=== PATIENT | female | born 1940 | race Caucasian/White ===

== ENCOUNTER 2017-03-18 04:50 | Inpatient (IN) | payer MEDICARE, OTHER ==
[2017-03-18] VITALS (12 sets, daily range): BP systolic 104–128; BP diastolic 58–77; PULSE 40–110; RESP 16–18; TEMP 98.4; Ht 154.9 cm; Wt 68.5 kg
[~2017-03-18] VITALS: Ht 154.9 cm; Wt 68.5 kg
[~2017-03-18 04:50] MED LIST: ALEN70TA30 PO; ALPR0.5T6 PO; ASPI81TA3 PO; BENA20TA48 PO; CHOL2000 PO; FENO48TA4 PO; GABA100C14 PO; LEVO100T87 PO; METO25TA4 PO; RANI150T9 PO; RANO500T2 PO; TRAM50TA2 PO
[2017-03-18] MEDS ORDERED: SOD CHLORIDE 0.9% 500 ML IV STA (04:56)
--- NOTE | 2017-03-18 06:11 | RADRPT ---
PROCEDURE: XR Chest. CLINICAL INDICATION: Chest pain TECHNIQUE: An AP view of the chest was obtained. COMPARISON: Chest x-ray dated 07/03/2016 FINDINGS: There is prominence of the interstitial markings. No pleural effusion or pneumothorax is seen. Th e cardiomediastinal silhouette is mildly enlarged . Calcifications are seen within the aortic arch. The osseous structures demonstrate senescent changes. IMPRESSION: 1. Mild prominence of the interstitial markings, may reflect mild underlying interstitial edema or chronic lung changes. No significant interval change. 2. Mild cardiomegaly and aortic atherosclerosis. RPTAT: HH .Dinorah Carrizales MD, MD Date Time Electronically viewed and signed by .Dinorah Carrizales MD, on 03/18/2017 06:11 .G/
[2017-03-18 06:18] LABS: ADD SCAN DIFF NO
[2017-03-18 06:22] LABS: BASOPHILS % 0.6 % (0.0-2.0); EOSINOPHILS # 0.1 10^3/ul (0.0-0.5); EOSINOPHILS % 2.7 % (0.0-7.0); HEMATOCRIT 36.9 % (37.0-47.0); HEMOGLOBIN 11.8 g/dl (12.0-16.0); LYMPHOCYTES # 1.6 10^3/ul (0.8-2.9); LYMPHOCYTES % 33.1 % (15.0-51.0); MEAN CORPUSCULAR HEMOGLOBIN 29.2 pg (29.0-33.0); MEAN CORPUSCULAR VOLUME 91.3 fl (82.0-101.0); MEAN PLATELET VOLUME 11.3 fl (7.4-10.4); MONOCYTE # 0.4 10^3/ul (0.3-0.9); MONOCYTES % 7.5 % (0.0-11.0); NEUTROPHIL # 2.7 10^3/ul (1.6-7.5); NEUTROPHILS % 55.7 % (39.0-77.0); PLATELET COUNT 241 10^3/UL (140-415); RED BLOOD COUNT 4.04 10^6/ul (4.20-5.40); RED CELL DISTRIBUTION WIDTH 13.3 % (11.5-14.5); WHITE BLOOD COUNT 4.8 10^3/ul (4.8-10.8)
[2017-03-18 06:23] LABS: INR 0.96; PROTIME 12.8 Sec (12.2-14.2)
[2017-03-18 06:25] LABS: PARTIAL THROMBOPLASTIN TIME 27.1 Sec (25.0-35.0)
[2017-03-18 06:26] LABS: CHLORIDE 107 mmol/L (97-110); POTASSIUM 4.5 mmol/L (3.5-5.1); SODIUM 140 mmol/L (135-144)
[2017-03-18 06:29] LABS: ANION GAP 16 (8-16); BLOOD UREA NITROGEN 31 mg/dl (7-20); CALCIUM 9.6 mg/dl (8.4-10.2); CARBON DIOXIDE 22 mmol/L (21-31); GLUCOSE 101 mg/dl (70-220)
--- NOTE | 2017-03-18 06:41 | ERA ---
ER Documentation Chief Complaint Date/Time DATE: 03/18/17 TIME: 06:38 Chief Complaint cp since 0200, has taken 2 ntg sl without relief HPI This is a 76-year-old female who states she had a sudden onset of substernal chest pressure at 2 AM today with radiation into her left neck. She had no shortness of breath no palpitations no dizziness no syncope. Patient has a history of hypertension denies diabetes or high cholesterol. She denies any recent history of chest pain. She says that she called an ambulance and they gave her 2 sprays of nitroglycerin which markedly decreased her pain. She also complains of vague complaints such as generalized weakness and bilateral leg tingling which is resolved. ROS All systems reviewed and are negative except as per history of present illness. Medications Home Meds Active Scripts Ranitidine Hcl* (Zantac*) 150 Mg Tablet, 150 MG PO BID, #60 TAB Prov:DAVID PUGH DO 07/01/16 Reported Medications Tramadol HCl (Tramadol HCl) 50 Mg Tablet, 0 PO BID, #60 TAB PATIENTS RELATIVE ISNT SURE ON THE DOSE MG OF TRAMADOL 07/03/16 Alendronate Sodium* (Fosamax*) 70 Mg Tablet, 70 MG PO Q7D, #4 TAB 07/03/16 Levothyroxine Sodium* (Levothyroxine Sodium*) 100 Mcg Tablet, 100 MCG PO BEFORE BREAKFAST, #30 TAB 07/03/16 Ranolazine* (Ranexa*) 500 Mg Tab.sr.12h, 500 MG PO Q12, TAB 02/19/16 Gabapentin* (Gabapentin*) 100 Mg Capsule, 100 MG PO DAILY, #90 CAP 01/11/16 Cholecalciferol* (Vitamin D3*) 2,000 Unit Cap, 2000 UNIT PO DAILY, CAP 01/11/16 Fenofibrate Nanocrystallized* (Fenofibrate*) 48 Mg Tablet, 48 MG PO DAILY 01/11/16 Aspirin* (Aspirin* Chew) 81 Mg Tab.chew, 81 MG PO DAILY, TAB.CHEW 07/03/15 Metoprolol Tartrate* (Lopressor*) 25 Mg Tablet, 25 MG PO DAILY, TAB 07/03/15 Benazepril Hcl* (Benazepril Hcl*) 20 Mg Tablet, 10 MG PO AM, TAB 07/03/15 Alprazolam* (Alprazolam*) 0.5 Mg Tablet, 0.5 MG PO DAILY Y for ANXIETY, TAB 07/03/15 Allergies Allergies: Coded Allergies: No Known Allergy (Unverified , 07/03/16) PMhx/Soc History of Surgery: Yes ([facility] 2013) Anesthesia Reaction: No Hx Neurological Disorder: No Hx Respiratory Disorders: No Hx Cardiac Disorders: Yes (HTN, HIGH CHOLESTEROL, MA, A-FIB) Hx Psychiatric Problems: Yes (ANXIETY, DEPRESSION) Hx Miscellaneous Medical Probl: Yes (PARKINSONS, right leg DVT) Hx Alcohol Use: No Hx Substance Use: No Hx Tobacco Use: No Smoking Status: Never smoker FmHx Family History: No coronary disease Physical Exam Vitals Vital Signs Date Time Temp Pulse Resp B/P Pulse Ox O2 Delivery O2 Flow Rate FiO2 03/18/17 06:39 52 16 137/76 100 Room Air 03/18/17 04:52 98.4 48 20 184/78 94 Physical Exam Const: Well-developed, well-nourished Head: Atraumatic, normocephalic Eyes: Normal Conjunctiva, PERRLA, EOMI, normal sclera, no nystagmus ENT: Normal External Ears, Nose and Mouth, moist mucus membranes. Neck: Full range of motion. No meningismus, no lymphadenopathy. Resp: Clear to auscultation bilaterally, no wheezing, rhonchi, rales Cardio: Regular rate and rhythm, no murmurs, S1 S2 present Abd: Soft, non tender x 4, non distended. Normal bowel sounds, no guarding or rebound, no pulsitile abdominal masses or bruits Skin: No petechiae or rashes, no ecchymosis , no maculopapular rash Back: No midline or flank tenderness Ext: No cyanosis, or edema, FROM x 4, normal inspection, neurovascularly intact x 4 Neur: Awake and alert, STR 5/5 x 4, sensation intact x 4, no focal findings, cerebellum intact Psych: Normal Mood and Affect Result Diagram: 03/18/17 0508 03/18/17 0508 Results 24 hrs Laboratory Tests Test 03/18/17 05:08 White Blood Count 4.810^3/ul Red Blood Count 4.0410^6/ul Hemoglobin 11.8g/dl Hematocrit 36.9% Mean Corpuscular Volume 91.3fl Mean Corpuscular Hemoglobin 29.2pg Mean Corpuscular Hemoglobin Concent 32.0g/dl Red Cell Distribution Width 13.3% Platelet Count 94068^3/UL Mean Platelet Volume 11.3fl Neutrophils % 55.7% Lymphocytes % 33.1% Monocytes % 7.5% Eosinophils % 2.7% Basophils % 0.6% Nucleated Red Blood Cells % 0.0/100WBC Neutrophils # 2.710^3/ul Lymphocytes # 1.610^3/ul Monocytes # 0.410^3/ul Eosinophils # 0.110^3/ul Basophils # 0.010^3/ul Nucleated Red Blood Cells # 0.010^3/ul Prothrombin Time 12.8Sec Prothrombin Time Ratio 1.0 INR International Normalized Ratio 0.96 Activated Partial Thromboplast Time 27.1Sec Sodium Level 140mmol/L Potassium Level 4.5mmol/L Chloride Level 107mmol/L Carbon Dioxide Level 22mmol/L Anion Gap 16 Blood Urea Nitrogen 31mg/dl Creatinine 1.60mg/dl Glucose Level 101mg/dl Calcium Level 9.6mg/dl Troponin I < 0.012ng/ml Current Medications Medications (Trade) Dose Ordered Sig/Roger Route PRN Reason Start Time Stop Time Status Last Admin Dose Admin Sodium Chloride (NS) 500 ml @ 500 mls/hr Q1H STAT IV 03/18/17 04:56 03/18/17 06:01 DC 03/18/17 04:56 Procedures/MDM EKG: Rate/Rhythm: Atrial fibrillation with a heart rate of 50 QRS, ST, QT: NORMAL, QRS, QT] Impression: Atrial fibrillation PROCEDURE: XR Chest. CLINICAL INDICATION: Chest pain TECHNIQUE: An AP view of the chest was obtained. COMPARISON: Chest x-ray dated 07/03/2016 FINDINGS: There is prominence of the interstitial markings. No pleural effusion or pneumothorax is seen. The cardiomediastinal silhouette is mildly enlarged . Calcifications are seen within the aortic arch. The osseous structures demonstrate senescent changes. IMPRESSION: 1. Mild prominence of the interstitial markings, may reflect mild underlying interstitial edema or chronic lung changes. No significant interval change. 2. Mild cardiomegaly and aortic atherosclerosis. RPTAT: .Dinorah Carrizales MD, Date Time Electronically viewed and signed by .Dinorah Carrizales MD, on 03/18/2017 06 :11 .G/ CC: MIKEY HARDEN Patient's symptoms are concerning for cardiac cause will require inpatient workup and continuous monitoring. Further w/u for ischemia, arrhythmia, PE or dissection will be deferred to the inpatient team. Accepting Care Team: Current data and ongoing care discussed. Time: Time of admission Primary Provider: chris Consulting: [employer] Outstanding Data: none Departure Diagnosis: Primary Impression: Chest pain Qualified Code: R07.9 - Chest pain, unspecified type Condition: TRAVIS Alfaro DO March 18, 2017 06:41
[2017-03-18 06:57] LABS: TROPONIN-I < 0.012 ng/ml (0.00-0.12)
[2017-03-18] MEDS ORDERED: SOD CHLORIDE 0.9% 1,000 ML IV SCH (08:17)
[2017-03-18] MEDS ORDERED: LEVO75TA5 PO (08:20)
[2017-03-18] MEDS ORDERED: GABA300C16 PO (08:20)
[2017-03-18] MEDS ORDERED: TRAM-40 PO (08:24)
[2017-03-18] MEDS ORDERED: APIX5TAB PO (08:26)
[2017-03-18] MEDS ORDERED: NITR0.4T6 SL (08:27)
[2017-03-18] MEDS ORDERED: ACETAMINOPHEN 325 MG TAB PO PRN (08:30)
[2017-03-18] MEDS ORDERED: ONDANSETRON 4 MG INJ IV PRN (08:30)
[2017-03-18 12:30] LABS: CREATINE KINASE 32 IU/L (23-200)
[2017-03-18 12:32] LABS: CK-MB 0.27 ng/ml (0.0-2.4)
[2017-03-18 12:36] LABS: TROPONIN-I < 0.012 ng/ml (0.00-0.12)
[2017-03-18] MEDS ORDERED: ALPRAZOLAM 0.5 MG TAB PO PRN (14:00)
[2017-03-18] MEDS ORDERED: NITROGLYCERIN (SL) 0.4 MG TAB SL PRN (14:00)
--- NOTE | 2017-03-18 14:13 | HP ---
Date/Time of Note Date/Time of Note DATE: 03/18/17 TIME: 14:06 Assessment/Plan VTE Prophylaxis VTE Prophylaxis Intervention: other (Eliquis) Lines/Catheters IV [facility] Saline Lock Urinary Cath still in place: No Assessment/Plan Assessment/Plan 76yo F with 1. Chest pain r/o ACS, r/o GI pathology 2. Chronic Angina with non obstructive CAD on [facility] 09/14/15 3. HTN 4. Dyslipidemia 5. Paroxysmal Afib : 6. Chronic lung nodules on CT 7. Hypothyroidism 8. Osteoporosis on fosamax 9. CKD w/out PAYAM PLAN: * Telemetry admission, trend cardiac enzymes, 2d echo if none recently and cardiology consult. * oxygen and nitroglycerin therapy as needed. * Daily aspirin if no allergy or bleeding risk. * Will also get GI consult as patient is on Fosamax and may have GI side effects * Serial labs * Needs repeat CT for lung nodules in 3-6 months btw May and July * Titrate meds as indicated for better BP control * Supportive care PROPHYLAXIS: PPI and Eliquis HPI/ROS Admit Date/Time Admit Date/Time March 18, 2017 at 08:18 Hx of Present Illness PRESENTING COMPLAINT: acute onset of L sided chest pain 2am HISTORY OF PRESENTING COMPLAINT: This is a pleasant 76-year-old female who was a weekend from sleep last night because of chest pain. Said to be midsternal and radiates into her upper back. Pain was not associated with diaphoresis but patient did feel like she could not catch her breath. Patient has had no fever or cough. Patient does have history of gastroesophageal reflux intermittently. Patient does take Fosamax for osteoporosis. Pain was not relieved by sublingual nitroglycerin even though the patient took 2 pills, but was eventually relieved when she got nitroglycerin sprays in the ambulance in route to the emergency room. She is currently pain-free. She is being admitted to rule out an acute coronary syndrome. Initial ER evaluation has been unremarkable, my suspicion is patient might have a gastroenterologic cause of her pain in view of her medication history. ROS ROS: CONSTITUTIONAL: denies fever, chills, weight loss, weight gain HEENT: denies headaches, any vertigo, any sore throat or rhinorrhea. Eyes: No double or blurred vision or eye pain. GASTROINTESTINAL: The patient denies any nausea, vomiting, diarrhea or abdominal pain. GENITOURINARY: denies dysuria, frequency, urgency or hematuria. MUSCULOSKELETAL: also denies myalgias, arthralgias or edema. SKIN: denies rash or jaundice NEUROLOGIC: denies weakness, dizziness, focal neurological change or headache. PSYCHIATRIC: denies history of depression in the past, any suicidal ideation. substance abuse. ENDOCRINE: denies polyuria, polydipsia or hot or cold intolerance. HEMATOLOGIC: denies history of easy bruising, anemia or eczema. PMH/Family/Social Past Medical History * HTN * Paroxysmal afib * osteoporosis * HLD * CKD * Hypothyroidism * anxiety * Non obstructive CAD Past Surgical History * [facility] 2014 Family History Significant Family History: no pertinent family hx Social History Alcohol Use: none Smoking Status: Never smoker Drug Use: none Exam/Review of Systems Vital Signs Vitals VS - Last 72 Hours, by Label Date Time Temp Pulse Resp B/P Pulse Ox O2 Delivery O2 Flow Rate FiO2 03/18/17 13:34 60 03/18/17 12:30 97.6 54 16 104/58 100 03/18/17 12:06 53 03/18/17 09:34 51 03/18/17 08:30 98.4 52 16 121/66 100 Room Air 03/18/17 07:30 Nasal Cannula 2 03/18/17 06:39 52 16 137/76 100 Room Air 03/18/17 04:52 98.4 48 20 184/78 94 Vital Signs Date Time Temp Pulse Resp B/P Pulse Ox O2 Delivery O2 Flow Rate FiO2 03/18/17 13:34 60 03/18/17 12:30 97.6 16 104/58 100 03/18/17 08:30 Room Air 03/18/17 07:30 2 Exam Constitutional: alert, oriented, No distress Psych: anxiety Head: atraumatic, normocephalic Eyes: PERRL, No icteric ENMT: mucosa pink and moist, nl external ears & nose Neck: non-tender, supple, No jvd Respiratory: clear to auscultation, normal air movement Cardiovascular: irregular rhythm, nl pulses, No jugular venous distention (JVD), No murmurs/extra sounds, No regular rate and rhythm Gastrointestinal: bowel sounds, non-tender, soft Musculoskeletal: nl extremities to inspection Extremities: No edema Neurological: nl mental status, nl speech, No lethargic Labs Result Diagram: 03/18/17 0508 03/18/17 0508 Medications Medications Current Medications Sodium Chloride (NS) 1,000 ml @ 80 mls/hr [id number] IV ; Start 03/18/17 at 08:17 ; Stop 03/18/17 at 20:46 Alprazolam (Xanax) 0.5 mg DAILY PRN PO ANXIETY; Start 03/18/17 at 14:00; Status UNV Apixaban (Eliquis) 5 mg BID PO ; Start 03/18/17 at 21:00; Status UNV Benazepril HCl (Lotensin) 20 mg AM PO ; Start 03/19/17 at 09:00; Status UNV Cholecalciferol (Vitamin D) 2,000 unit DAILY PO ; Start 03/19/17 at 09:00; Status UNV Fenofibrate (Tricor) 48 mg DAILY PO ; Start 03/19/17 at 09:00; Status UNV Gabapentin (Neurontin) 300 mg QHS PO ; Start 03/18/17 at 21:00; Status UNV Metoprolol Tartrate (Lopressor) 25 mg DAILY PO ; Start 03/19/17 at 09:00; Status UNV Nitroglycerin (Nitroglycerin (Sl Tab) 0.4 Mg) 1 tab [id number] PRN SL CHEST PAIN ; Start 03/18/17 at 14:00; Status UNV Ranitidine HCl (Zantac) 150 mg BID PO ; Start 03/18/17 at 21:00; Status UNV Ranolazine (Ranexa) 500 mg Q12 PO ; Start 03/18/17 at 21:00; Status UNV Tramadol HCl (Ultram) 50 mg BID PRN PO PAIN; Start 03/18/17 at 14:00; Status UNV Procedures Procedures Laboratory Tests Test 03/18/17 05:08 03/18/17 11:22 White Blood Count 4.810^3/ul Red Blood Count 4.0410^6/ul Hemoglobin 11.8g/dl Hematocrit 36.9% Mean Corpuscular Volume 91.3fl Mean Corpuscular Hemoglobin 29.2pg Mean Corpuscular Hemoglobin Concent 32.0g/dl Red Cell Distribution Width 13.3% Platelet Count 01894^3/UL Mean Platelet Volume 11.3fl Neutrophils % 55.7% Lymphocytes % 33.1% Monocytes % 7.5% Eosinophils % 2.7% Basophils % 0.6% Nucleated Red Blood Cells % 0.0/100WBC Neutrophils # 2.710^3/ul Lymphocytes # 1.610^3/ul Monocytes # 0.410^3/ul Eosinophils # 0.110^3/ul Basophils # 0.010^3/ul Nucleated Red Blood Cells # 0.010^3/ul Prothrombin Time 12.8Sec Prothrombin Time Ratio 1.0 INR International Normalized Ratio 0.96 Activated Partial Thromboplast Time 27.1Sec Sodium Level 140mmol/L Potassium Level 4.5mmol/L Chloride Level 107mmol/L Carbon Dioxide Level 22mmol/L Anion Gap 16 Blood Urea Nitrogen 31mg/dl Creatinine 1.60mg/dl Glucose Level 101mg/dl Calcium Level 9.6mg/dl Troponin I < 0.012ng/ml < 0.012ng/ml Creatine Kinase 32IU/L Creatine Kinase Index 0.8 Creatinine Kinase MB (Mass) 0.27ng/ml PROCEDURE: XR Chest. CLINICAL INDICATION: Chest pain TECHNIQUE: An AP view of the chest was obtained. COMPARISON: Chest x-ray dated 07/03/2016 FINDINGS: There is prominence of the interstitial markings. No pleural effusion or pneumothorax is seen. The cardiomediastinal silhouette is mildly enlarged . Calcifications are seen within the aortic arch. The osseous structures demonstrate senescent changes. IMPRESSION: 1. Mild prominence of the interstitial markings, may reflect mild underlying interstitial edema or chronic lung changes. No significant interval change. 2. Mild cardiomegaly and aortic atherosclerosis. RPTAT: .Dinorah Carrizales MD, MD Date Time Electronically viewed and signed by .Dinorah Carrizales MD, MD on 03/18/2017 06 :11 .G/ CC: MIKEY HARDEN I reviewed EKG Rate: 50s Rhythm: Afib, on monitor, sinus with multiple PACs Note: No ST elevation or depressions noted concerning for acute ischemic event. JONN ALEXANDER March 18, 2017 14:13
[2017-03-18] MEDS ORDERED: ALPRAZOLAM 0.25 MG TAB PO PRN (14:30)
[2017-03-18] MEDS: traMADol 50 MG TAB PO PRN (15:34)
--- NOTE | 2017-03-18 16:28 | CONS ---
Date/Time of Note Date/Time of Note DATE: 03/18/17 TIME: 16:11 Assessment/Plan Assessment/Plan Additional Assessment/Plan Assessment * Chest pain Cardiac vs non cardiac pathology * Hypertension * Osteoporosis * Hypertension * History of atrial fibrillation Plan * trend troponin * EGD risk and benefit explained to patient and daughter and agreed with the planned procedure * control chest pain Consultation Date/Type/Reason Admit Date/Time March 18, 2017 at 08:18 Date of Consultation: March 18, 2017 Type of Consultation: Gastroenterology Reason for Consultation chest pain r/o gi pathology Referring Provider: JONN ALEXANDER Hx of Present Illness 77 y/o female with past medical history of hypothyroidism,atrial fibrillation, hypertension,CAD,osteoporosis,anxiety was brought to emergency room with sudden nset of chest pain radiating to the back.Pain is described as crushing 04/12 with associated nausea,Nitroglyceri x2 was taken which afforded no relief hence patient was brought to emergency room. Emergency room course revealed chest x ray mild cardiomegaly,WBC 4.8 , Hemoglobin 11.8,Troponin <0.012.ECG revealed atrial fibrillation with slow ventricular response.Patient was given,nitroglycerin ,Xanax and tramadol which afforded relief. On examination ,patient claims chest pain has improved,denies any nausea, vomiting but claims she had on and off episode of chest pain,with associated bloating and occasional dysphagia.Patient also taking Fosamax for her osteoporosis Constitutional: improved Eyes: no complaints ENT: no complaints Respiratory: no complaints Cardiovascular: chest pain, No edema, No lightheadedness, No orthopenea, No palpitations, No paroxysmal nocturnal dyspnea Gastrointestinal: pain Genitourinary: no complaints Musculoskeletal: no complaints Skin: no complaints Neurologic: no complaints Endocrine: no complaints Lymphatic: no complaints Psychological: anxiety Immunologic: no complaints Past Medical History Medical History: angina, coronary artery disease, hypertension, hypothyroid, other (osteoporosis) Past Surgical History Past Surgical Hx: no surgical history Family History Significant Family History: no pertinent family hx Social History Alcohol Use: none Smoking Status: Never smoker Drug Use: none Exam/Review of Systems Vital Signs Vitals Vital Signs Date Time Temp Pulse Resp B/P Pulse Ox O2 Delivery O2 Flow Rate FiO2 03/18/17 15:51 98.2 113 16 119/62 97 03/18/17 08:30 Room Air 03/18/17 07:30 2 Exam Constitutional: alert, oriented, well developed Psych: nl mood/affect Head: atraumatic, normocephalic Eyes: PERRL, nl conjunctiva, nl sclera Neck: non-tender Respiratory: clear to auscultation, normal air movement Cardiovascular: nl pulses, regular rate and rhythm Gastrointestinal: bowel sounds, non-tender, soft, No rebound or guarding Musculoskeletal: nl extremities to inspection, nl gait and stance Extremities: normal pulses Neurological: nl speech, nl strength Skin: nl turgor, No rash or lesions Lymph: nl lymph nodes Results Result Diagram: 03/18/17 0508 03/18/17 0508 Results 24 hrs Laboratory Tests Test 03/18/17 05:08 03/18/17 11:22 White Blood Count 4.8 Red Blood Count 4.04 L Hemoglobin 11.8 L Hematocrit 36.9 L Mean Corpuscular Volume 91.3 Mean Corpuscular Hemoglobin 29.2 Mean Corpuscular Hemoglobin Concent 32.0 Red Cell Distribution Width 13.3 Platelet Count 241 Mean Platelet Volume 11.3 H Neutrophils % 55.7 Lymphocytes % 33.1 Monocytes % 7.5 Eosinophils % 2.7 Basophils % 0.6 Nucleated Red Blood Cells % 0.0 Neutrophils # 2.7 Lymphocytes # 1.6 Monocytes # 0.4 Eosinophils # 0.1 Basophils # 0.0 Nucleated Red Blood Cells # 0.0 Prothrombin Time 12.8 Prothrombin Time Ratio 1.0 INR International Normalized Ratio 0.96 Activated Partial Thromboplast Time 27.1 Sodium Level 140 Potassium Level 4.5 Chloride Level 107 Carbon Dioxide Level 22 Anion Gap 16 Blood Urea Nitrogen 31 H Creatinine 1.60 H Glucose Level 101 Calcium Level 9.6 Troponin I < 0.012 < 0.012 Creatine Kinase 32 Creatine Kinase Index 0.8 Creatinine Kinase MB (Mass) 0.27 Medications Medications Current Medications Apixaban (Eliquis) 5 mg BID PO ; Start 03/18/17 at 21:00 Benazepril HCl (Lotensin) 20 mg AM PO ; Start 03/19/17 at 09:00 Cholecalciferol (Vitamin D) 2,000 unit DAILY PO ; Start 03/19/17 at 09:00 Fenofibrate (Tricor) 48 mg DAILY PO ; Start 03/19/17 at 09:00 Gabapentin (Neurontin) 300 mg QHS PO ; Start 03/18/17 at 21:00 Metoprolol Tartrate (Lopressor) 25 mg DAILY PO ; Start 03/19/17 at 09:00 Nitroglycerin (Nitroglycerin (Sl Tab) 0.4 Mg) 1 tab [id number] PRN SL CHEST PAIN ; Start 03/18/17 at 14:00 Ranitidine HCl (Zantac) 150 mg BID PO ; Start 03/18/17 at 21:00 Ranolazine (Ranexa) 500 mg Q12 PO ; Start 03/18/17 at 21:00 Tramadol HCl (Ultram) 50 mg BID PRN PO PAIN Last administered on 03/18/17 15: 34; Admin Dose 50 MG; Start 03/18/17 at 14:00 Alprazolam (Xanax) 0.5 mg DAILY PRN PO ANXIETY Last administered on 03/18/17 14:55; Admin Dose 0.5 MG; Start 03/18/17 at 14:30 ARCHIE PONCE MD March 18, 2017 16:23
[2017-03-18 17:33] LABS: CREATINE KINASE 36 IU/L (23-200)
[2017-03-18 17:44] LABS: CK-MB 0.27 ng/ml (0.0-2.4)
[2017-03-18 18:00] LABS: TROPONIN-I < 0.012 ng/ml (0.00-0.12)
[2017-03-18] MEDS: RANOLAZINE (SR) 500 MG TAB PO SCH (20:49)
[2017-03-18] MEDS: APIXABAN 5 MG TABLET PO SCH (20:49)
[2017-03-18] MEDS: GABAPENTIN 300 MG CAP PO SCH (20:49)
[2017-03-18] MEDS: RANITIDINE 150 MG TAB PO SCH (20:49)
[2017-03-19] VITALS (25 sets, daily range): BP systolic 107–149; BP diastolic 45–73; PULSE 50–88; RESP 14–20
[2017-03-19 00:16] LABS: URINE BILIRUBIN (Dip) NEGATIVE (NEGATIVE); URINE BLOOD (Dip) NEGATIVE (NEGATIVE); URINE COLOR LT. YELLOW (YELLOW); URINE GLUCOSE (Dip) NEGATIVE (NEGATIVE); URINE KETONES (Dip) NEGATIVE (NEGATIVE); URINE NITRITE (Dip) NEGATIVE (NEGATIVE); URINE TOTAL PROTEIN (Dip) NEGATIVE (NEGATIVE); URINE UROBILINOGEN (Dip) 0.2 E.U./dL (0.1-1.0)
[2017-03-19 00:17] LABS: ADD UMIC YES; URINE LEUKOCYTE ESTERASE (Dip) TRACE (NEGATIVE)
[2017-03-19 00:20] LABS: BACTERIA,URINE FEW; SQUAMOUS EPITHELIAL CELL,UR FEW; URINE RBCS 0-2 /HPF (0)
[2017-03-19 07:28] LABS: ADD SCAN DIFF NO
[2017-03-19 07:38] LABS: BASOPHILS % 0.6 % (0.0-2.0); EOSINOPHILS # 0.1 10^3/ul (0.0-0.5); EOSINOPHILS % 2.7 % (0.0-7.0); HEMATOCRIT 34.2 % (37.0-47.0); LYMPHOCYTES # 1.6 10^3/ul (0.8-2.9); MEAN CORPUSCULAR HEMOGLOBIN 28.9 pg (29.0-33.0); MEAN CORPUSCULAR HGB CONC 32.2 g/dl (32.0-37.0); MEAN PLATELET VOLUME 10.7 fl (7.4-10.4); MONOCYTE # 0.4 10^3/ul (0.3-0.9); MONOCYTES % 7.6 % (0.0-11.0); NEUTROPHIL # 2.6 10^3/ul (1.6-7.5); NEUTROPHILS % 54.7 % (39.0-77.0); PLATELET COUNT 218 10^3/UL (140-415); RED CELL DISTRIBUTION WIDTH 13.3 % (11.5-14.5); WHITE BLOOD COUNT 4.7 10^3/ul (4.8-10.8)
[2017-03-19] MEDS: LEVOTHYROXINE 75 MCG TAB PO SCH (07:52)
[2017-03-19] MEDS: FENOFIBRATE 48 MG TAB PO SCH (08:04)
[2017-03-19] MEDS: RANOLAZINE (SR) 500 MG TAB PO SCH ×2 (08:04→20:57)
[2017-03-19] MEDS: CHOLECALCIFEROL 2,000 UNIT CAP PO SCH (08:04)
[2017-03-19] MEDS: APIXABAN 5 MG TABLET PO SCH ×2 (08:04→20:56)
[2017-03-19] MEDS: RANITIDINE 150 MG TAB PO SCH (08:04)
[2017-03-19 08:08] LABS: CALCIUM 9.2 mg/dl (8.4-10.2); CREATININE 1.4 mg/dl (0.44-1.00); MAGNESIUM 1.8 mg/dl (1.7-2.5); POTASSIUM 4.6 mmol/L (3.5-5.1)
[2017-03-19] MEDS: METOPROLOL 25 MG TAB PO SCH (08:08)
[2017-03-19] MEDS: BENAZEPRIL 20 MG TAB PO SCH (08:08)
[2017-03-19 08:23] LABS: THYROID STIMULATING HORMONE 3.33 MIU/L (0.465-4.680)
--- NOTE | 2017-03-19 14:35 | PN ---
Date/Time of Note Date/Time of Note DATE: 03/19/17 TIME: 14:32 Assessment/Plan VTE Prophylaxis VTE Prophylaxis Intervention: other (Eliquis) Lines/Catheters IV [facility] Saline Lock Urinary Cath still in place: No Assessment/Plan Assessment/Plan 76yo F with 1. Chest pain ACS has been ruled out , r/o GI pathology 2. Chronic Angina with non obstructive CAD on [facility] 09/14/15 3. HTN 4. Dyslipidemia 5. Paroxysmal Afib : 6. Chronic lung nodules on CT 7. Hypothyroidism 8. Osteoporosis on fosamax 9. CKD w/out PAYAM PLAN: * Follow-up EGD findings, if negative plan for discharge. PROPHYLAXIS: PPI and Eliquis Subjective 24 Hr Interval Summary Free Text/Dictation Patient doing well, denies any further chest pain. States she continues to have some upper back pain however. Planned for endoscopy today. Exam/Review of Systems Vital Signs Vitals Vital Signs Date Time Temp Pulse Resp B/P Pulse Ox O2 Delivery O2 Flow Rate FiO2 03/19/17 12:00 54 03/19/17 11:29 98.1 20 113/73 97 03/19/17 05:31 Room Air 03/18/17 07:30 2 Intake and Output 03/18/17 03/18/17 03/19/17 14:59 22:59 06:59 Intake Total 450 ml 120 ml Output Total 400 ml Balance 450 ml -280 ml Exam Constitutional: alert, oriented, No distress Psych: anxiety Head: atraumatic, normocephalic Eyes: PERRL, No icteric ENMT: mucosa pink and moist, nl external ears & nose Neck: non-tender, supple, No jvd Respiratory: clear to auscultation, normal air movement Cardiovascular: irregular rhythm, nl pulses, No jugular venous distention (JVD), No murmurs/extra sounds, No regular rate and rhythm Gastrointestinal: bowel sounds, non-tender, soft Musculoskeletal: nl extremities to inspection Extremities: No edema Neurological: nl mental status, nl speech, No lethargic Results Result Diagram: 03/19/17 0710 03/19/17 0710 Results 24 hrs Laboratory Tests Test 03/18/17 16:30 03/18/17 17:10 03/19/17 07:10 Urine Color LT. YELLOW Urine Clarity CLEAR Urine pH 7.0 Urine Specific Russell 1.010 Urine Ketones NEGATIVE Urine Nitrite NEGATIVE Urine Bilirubin NEGATIVE Urine Urobilinogen 0.2 E.U./dL Urine Leukocyte Esterase TRACE H Urine Microscopic RBC 0-2 Urine Microscopic WBC 2-5 Urine Squamous Epithelial Cells FEW Urine Bacteria FEW Urine Hemoglobin NEGATIVE Urine Glucose NEGATIVE Urine Total Protein NEGATIVE Creatine Kinase 36 Creatine Kinase Index 0.8 Creatinine Kinase MB (Mass) 0.27 Troponin I < 0.012 White Blood Count 4.7 L Red Blood Count 3.80 L Hemoglobin 11.0 L Hematocrit 34.2 L Mean Corpuscular Volume 90.0 Mean Corpuscular Hemoglobin 28.9 L Mean Corpuscular Hemoglobin Concent 32.2 Red Cell Distribution Width 13.3 Platelet Count 218 Mean Platelet Volume 10.7 H Neutrophils % 54.7 Lymphocytes % 34.0 Monocytes % 7.6 Eosinophils % 2.7 Basophils % 0.6 Nucleated Red Blood Cells % 0.0 Neutrophils # 2.6 Lymphocytes # 1.6 Monocytes # 0.4 Eosinophils # 0.1 Basophils # 0.0 Nucleated Red Blood Cells # 0.0 Sodium Level 137 Potassium Level 4.6 Chloride Level 108 Carbon Dioxide Level 24 Anion Gap 10 # Blood Urea Nitrogen 23 H Creatinine 1.40 H Glucose Level 88 Hemoglobin A1c 5.4 Calcium Level 9.2 Magnesium Level 1.8 Thyroid Stimulating Hormone (TSH) 3.330 Medications Medications Current Medications Apixaban (Eliquis) 5 mg BID PO Last administered on 03/19/17 08:04; Admin Dose 5 MG; Start 03/18/17 at 21:00 Benazepril HCl (Lotensin) 20 mg AM PO ; Start 03/19/17 at 09:00 Cholecalciferol (Vitamin D) 2,000 unit DAILY PO Last administered on 03/19/17 08:04; Admin Dose 2,000 UNIT; Start 03/19/17 at 09:00 Fenofibrate (Tricor) 48 mg DAILY PO Last administered on 03/19/17 08:04; Admin Dose 48 MG; Start 03/19/17 at 09:00 Gabapentin (Neurontin) 300 mg QHS PO Last administered on 03/18/17 20:49; Admin Dose 300 MG; Start 03/18/17 at 21:00 Metoprolol Tartrate (Lopressor) 25 mg DAILY PO ; Start 03/19/17 at 09:00 Nitroglycerin (Nitroglycerin (Sl Tab) 0.4 Mg) 1 tab [id number] PRN SL CHEST PAIN ; Start 03/18/17 at 14:00 Ranitidine HCl (Zantac) 150 mg BID PO Last administered on 03/19/17 08:04; Admin Dose 150 MG; Start 03/18/17 at 21:00 Ranolazine (Ranexa) 500 mg Q12 PO Last administered on 03/19/17 08:04; Admin Dose 500 MG; Start 03/18/17 at 21:00 Tramadol HCl (Ultram) 50 mg BID PRN PO PAIN Last administered on 03/18/17 15: 34; Admin Dose 50 MG; Start 03/18/17 at 14:00 Alprazolam (Xanax) 0.5 mg DAILY PRN PO ANXIETY Last administered on 03/18/17 14:55; Admin Dose 0.5 MG; Start 03/18/17 at 14:30 JONN ALEXANDER March 19, 2017 14:35
[2017-03-19] MEDS ORDERED: FENTAnyl 50 MCG/ML VIAL ONE (18:19)
[2017-03-19] MEDS ORDERED: PROPOFOL 20 ML ONE (18:19)
[2017-03-19] MEDS ORDERED: LIDOCAINE 2% (SDV) 5 ML INJ ONE (18:19)
[2017-03-19] MEDS: GABAPENTIN 300 MG CAP PO SCH (20:57)
[2017-03-19] MEDS: traMADol 50 MG TAB PO PRN (22:46)
[2017-03-20] VITALS (12 sets, daily range): BP systolic 110–146; BP diastolic 63–74; PULSE 55–70; RESP 17–20
--- NOTE | 2017-03-20 03:37 | CONS ---
DATE OF ADMISSION: 03/18/2017 DATE OF CONSULTATION: 03/19/2017 REASON FOR CONSULTATION: Chest pain, assess for acute coronary syndrome. REQUESTING PHYSICIAN: Dr. Alexander from the hospitalist service. HISTORY OF PRESENT ILLNESS: Ms. Pardo is a 76-year-old female with a history of nonobstructive coronary artery disease by catheterization on 09/2015, hypertension, dyslipidemia, anxiety, who init ially presented with complaints of substernal chest pain. Upon arrival, temperature is 98.4, blood pressure 184/78, pulse 48, respiratory rate 20, saturating 94%. The patient's labs revealed white c ount 4.8, hemoglobin 11.8 and platelet count of 241. Sodium 140, potassium 4.5, creatinine of 1.6, BUN 31. Troponin negative. TSH of 3.33. INR 0.96. UA negative. The patient underwent a chest x- ray revealing mild prominence interstitial markings may reflect mild underlying interstitial edema o r chronic lung changes. The patient underwent electrocardiogram which revealed a rhythm likely most consistent with atrial fibrillation, rate of 50 with normal axis and nonspecific ST and T wave abno rmalities diffusely. The patient was subsequently admitted to the floor and since admitted to the [facility] has been monitored on telemetry with an episode of a pause 4.5 seconds. The patient has had stable blood pressures, but continued to be benita. The patient most recently has been in sinus bradycardia. PAST MEDICAL HISTORY: As above in HPI. MEDICATIONS CURRENTLY IN HOSPITAL: 1. Protonix 40 mg daily. 2. Potassium 20 mg p.o. q.a.m. 3. Vitamin D. 4. Tricor 48 mg daily. 5. Metoprolol 25 mg daily. 6. Synthroid 75 mcg daily. 7. Apixaban 5 mg p.o. b.i.d. 8. Neurontin 300 mg at bedtime. 9. Ranexa 500 mg q.12 hours. 10. Xanax p.r.n. 11. Sublingual nitroglycerin p.r.n. 12. Tramadol 50 mg b.i.d. p.r.n. ALLERGIES: NO KNOWN DRUG ALLERGIES. SOCIAL HISTORY: No tobacco, ETOH or illicit drug use. FAMILY HISTORY: Negative for sudden cardiac or early CAD. REVIEW OF SYSTEMS: As above in HPI. CONSTITUTIONAL: No fevers, chills. PULMONARY: No current shortness of breath. CARDIOVASCULAR: No current chest pain. GASTROINTESTINAL: No nausea, vomiting but to have endoscopy today to rule out possible GI causes. ENDOCRINE: Hypothyroidism. PSYCHIATRIC: Possible anxiety. PHYSICAL EXAMINATION: VITAL SIGNS: Temperature of 98.3, blood pressure initially 109/59, pulse 58, respiratory rate 16, s aturating 98%. GENERAL: The patient is alert and awake. NECK: JVP approximately 8 cm water. CHEST: Fair air movement throughout. HEART: Bradycardic, regular rhythm, normal S1, S2, I/ systolic murmur, nondisplaced PMI. ABDOMEN: Positive bowel sounds, soft. EXTREMITIES: No pitting edema, 1+ pulses bilaterally posterior tibial. LABORATORY DATA: As above in HPI, with most recent today, sodium 137, potassium 4.6, creatinine 1.4 , BUN 23. White blood cell count 4.7, hemoglobin 11.0, platelet count 218. UA negative. IMAGING STUDIES: As above in HPI. No further imaging studies for my review at this time. ECG: As above in HPI. No further electrocardiograms for my review at this time. IMPRESSION: 1. Chest pain, assess for acute coronary syndrome with negative troponins x2 thus far. 2. Bradycardia with pauses greater than 4 seconds. 3. History of paroxysmal atrial fibrillation on systemic anticoagulation. 4. History of coronary artery disease, nonobstructive by catheterization in 2014. 5. Hypertension, under reasonable control. 6. Possible angina. 7. Renal failure. 8. Anemia. RECOMMENDATIONS: 1. At this time, would maintain the patient on telemetry monitoring to follow rhythm and rate close ly, assess for any recurrent significant bradycardia or pauses. 2. Will hold the patient's this time and therefore we will discontinue the patient's beta blo cker. Follow heart rate closely and follow for recurrent pauses and possible need for permanent pac emaker. 3. Continue the patient's current ANGEL inhibitor for control of blood pressure and the patient's ant ianginal medications with Ranexa. 4. Additionally continue the patient's Eliquis at this time as possible since the patient is underg oing endoscopy and may need to be held during this time. 5. Follow the patient's volume status and creatinine closely and check a fasting lipid panel and ad just the patient's lipid-lowering medication as necessary. 6. Will additionally consider a possible stress test in this patient given recurrent chest pain. Thank you for allowing me to take part in the care of this patient. I will continue to follow along very closely with you. Further recommendations will be made as the patient progresses through her inpatient hospital clinical course. Dictated By: CHAITANYA JUNIOR/SUNNY Conf#: [id number] DID#: [id number] CC: JONN ALEXANDER MD;*EndCC*
--- NOTE | 2017-03-20 03:51 | GILP ---
DATE OF PROCEDURE: 03/19/2017 PROCEDURE: Esophagogastroduodenoscopy with biopsies. BRIEF HISTORY AND INDICATIONS: The patient is being evaluated for atypical chest pain. PREMEDICATION: Monitored anesthesia care by anesthesiologist. SURGEON: Archie Alanis MD. INSTRUMENT USED: Olympus panendoscope TECHNIQUE: After informed consent, with the patient/relatives understanding the procedure, its indic ations, potential risks and complications, including but not limited to: allergic reaction, bleeding , perforation or infection, and after all pertinent questions were answered to the patients satisfac tion, the patient/relatives signed witnessed informed consent. Following this, premedication was administered slowly IV push under careful cardiovascular and respi ratory monitoring with pulse oximetry, automatic blood pressure and child monitor. Once the sedative effect was achieved the patient was place in the left lateral decubitus, the panen doscope was introduced and advanced under visual control. Careful examination of the upper gastrointestinal tract, both on insertion as well as withdrawal of the instrument disclosed the following findings: ESOPHAGUS: The distal esophagus shows mild erythema and edema of the mucosa. STOMACH: Upon entrance to the stomach air was insufflated, the gastric ramirez distended normally. T he mucosa of the fundus, body and antrum of the stomach was carefully examined and shows mild erythe ma of the mucosa of the body and antrum of the stomach. Biopsies were obtained to rule out H. pylor i infection. PYLORUS: The pylorus appears patent and within normal limits, with no evidence of gastric outlet ob struction. DUODENUM: The duodenal mucosa was carefully examined in the duodenal bulb as well as the second por tion of the duodenum and appears unremarkable with no evidence of duodenitis, ulcer or neoplasm. The instrument was then withdrawn, the patient tolerated the procedure well and was transfer out of the endoscopy suite awake, and in good condition to continue recovery under observation IMPRESSION: 1. Mild distal esophagitis. 2. Mild gastritis rule out H. pylori infection, biopsies obtained. PLAN: The patient will be treated with PPIs. Further recommendation will depend on her clinical co urse as well as review of biopsies data. Dictated By: ARCHIE ALANIS MS/SUNNY Conf#: [id number] DID#: [id number]
[2017-03-20] MEDS: PANTOPRAZOLE (EC) 40 MG TAB PO SCH (05:37)
[2017-03-20] MEDS: LEVOTHYROXINE 75 MCG TAB PO SCH (06:21)
[2017-03-20 07:35] LABS: ADD SCAN DIFF NO
[2017-03-20 07:41] LABS: BASOPHILS % 0.7 % (0.0-2.0); EOSINOPHILS # 0.1 10^3/ul (0.0-0.5); EOSINOPHILS % 2.4 % (0.0-7.0); HEMATOCRIT 33.4 % (37.0-47.0); HEMOGLOBIN 11.2 g/dl (12.0-16.0); LYMPHOCYTES # 1.3 10^3/ul (0.8-2.9); LYMPHOCYTES % 30.3 % (15.0-51.0); MEAN CORPUSCULAR HEMOGLOBIN 29.6 pg (29.0-33.0); MEAN CORPUSCULAR HGB CONC 33.5 g/dl (32.0-37.0); MEAN CORPUSCULAR VOLUME 88.4 fl (82.0-101.0); MEAN PLATELET VOLUME 10.8 fl (7.4-10.4); MONOCYTE # 0.3 10^3/ul (0.3-0.9); MONOCYTES % 7.1 % (0.0-11.0); NEUTROPHIL # 2.5 10^3/ul (1.6-7.5); NEUTROPHILS % 59.3 % (39.0-77.0); PLATELET COUNT 231 10^3/UL (140-415); RED BLOOD COUNT 3.78 10^6/ul (4.20-5.40); WHITE BLOOD COUNT 4.2 10^3/ul (4.8-10.8)
[2017-03-20 08:05] LABS: CHOL/HDL RATIO 2.6 RATIO; CHOLESTEROL 123 mg/dl (100-200); HDL CHOLESTEROL 47 mg/dl (33-92); TRIGLYCERIDES 112 mg/dl (0-149)
[2017-03-20 08:23] LABS: TROPONIN-I < 0.012 ng/ml (0.00-0.12)
[2017-03-20] MEDS: CHOLECALCIFEROL 2,000 UNIT CAP PO SCH (08:36)
[2017-03-20] MEDS: APIXABAN 5 MG TABLET PO SCH ×2 (08:36→21:12)
[2017-03-20] MEDS: RANOLAZINE (SR) 500 MG TAB PO SCH ×2 (08:37→21:12)
[2017-03-20] MEDS: FENOFIBRATE 48 MG TAB PO SCH (08:37)
[2017-03-20] MEDS: BENAZEPRIL 20 MG TAB PO SCH (08:38)
[2017-03-20] MEDS: METOPROLOL 25 MG TAB PO SCH (08:38)
[2017-03-20 08:49] LABS: CALCIUM 9.6 mg/dl (8.4-10.2); CREATININE 1.41 mg/dl (0.44-1.00); POTASSIUM 4.6 mmol/L (3.5-5.1)
[2017-03-20] MEDS ORDERED: REGADENOSON 0.4 MG/5 ML SYG ONE (09:50)
--- NOTE | 2017-03-20 10:38 | CONS ---
Date/Time of Note Date/Time of Note DATE: 03/20/17 TIME: 10:35 Assessment/Plan Assessment/Plan Chief Complaint/Hosp Course IMPRESSION: 1. Chest pain, assess for acute coronary syndrome with negative troponins x3. 2. Bradycardia with pauses greater than 4 seconds. 3. History of paroxysmal atrial fibrillation on systemic anticoagulation. 4. History of coronary artery disease, nonobstructive by catheterization in 2014. 5. Hypertension, under reasonable control. 6. Possible angina. 7. Renal failure. 8. Anemia. Recc; -tele -Hold BB/all tyrone agents -Continue ACEI -Continue ranexa -Lexiscan stress test today -Continue PPI -Continue eliquis Problems: Consultation Date/Type/Reason Admit Date/Time March 18, 2017 at 08:18 Initial Consult Date 03/18/17 Type of Consultation: Cardiology Reason for Consultation chest pain/bradycardia Referring Provider: JONN ALEXANDER Exam/Review of Systems Vital Signs Vitals Vital Signs Date Time Temp Pulse Resp B/P Pulse Ox O2 Delivery O2 Flow Rate FiO2 03/20/17 08:12 55 03/20/17 07:35 97.9 20 146/65 99 03/19/17 19:31 Room Air 03/18/17 07:30 2 Intake and Output 03/19/17 03/19/17 03/20/17 15:00 23:00 07:00 Intake Total 480 ml 240 ml Output Total 1000 ml Balance -520 ml 240 ml Exam Review of Systems: CONSTITUTIONAL: No fevers, chills. PULMONARY: No sob CARDIOVASCULAR: No chest pain/palpitations GASTROINTESTINAL: No nausea/vomiting. GENITOURINARY: No hematuria/dysuria. MUSCULOSKELETAL: No myagias/arthalgias. PSYCHIATRIC: The patient denies depression. NEUROLOGIC: No weakness Constitutional: alert, oriented Psych: no complaints Head: normocephalic ENMT: mucosa pink and moist Neck: jvd (9 cm water), supple Respiratory: clear to auscultation Cardiovascular: regular rate and rhythm Gastrointestinal: non-tender, soft Extremities: edema (none) Neurological: other (No focal deficits) Results Result Diagram: 03/20/17 0707 03/20/17 0707 Results 24 hrs Laboratory Tests Test 03/20/17 07:07 White Blood Count 4.2 L Red Blood Count 3.78 L Hemoglobin 11.2 L Hematocrit 33.4 L Mean Corpuscular Volume 88.4 Mean Corpuscular Hemoglobin 29.6 Mean Corpuscular Hemoglobin Concent 33.5 Red Cell Distribution Width 13.0 Platelet Count 231 Mean Platelet Volume 10.8 H Neutrophils % 59.3 Lymphocytes % 30.3 Monocytes % 7.1 Eosinophils % 2.4 Basophils % 0.7 Nucleated Red Blood Cells % 0.0 Neutrophils # 2.5 Lymphocytes # 1.3 Monocytes # 0.3 Eosinophils # 0.1 Basophils # 0.0 Nucleated Red Blood Cells # 0.0 Sodium Level 136 Potassium Level 4.6 Chloride Level 106 Carbon Dioxide Level 23 Anion Gap 12 Blood Urea Nitrogen 22 H Creatinine 1.41 H Glucose Level 88 Calcium Level 9.6 Troponin I < 0.012 Triglycerides Level 112 Cholesterol Level 123 LDL Cholesterol, Calculated 54 HDL Cholesterol 47 Cholesterol/HDL Ratio 2.6 Medications Medications Current Medications Apixaban (Eliquis) 5 mg BID PO Last administered on 03/20/17 08:36; Admin Dose 5 MG; Start 03/18/17 at 21:00 Benazepril HCl (Lotensin) 20 mg AM PO Last administered on 03/20/17 08:38; Admin Dose 20 MG; Start 03/19/17 at 09:00 Cholecalciferol (Vitamin D) 2,000 unit DAILY PO Last administered on 03/20/17 08:36; Admin Dose 2,000 UNIT; Start 03/19/17 at 09:00 Fenofibrate (Tricor) 48 mg DAILY PO Last administered on 03/20/17 08:37; Admin Dose 48 MG; Start 03/19/17 at 09:00 Gabapentin (Neurontin) 300 mg QHS PO Last administered on 03/19/17 20:57; Admin Dose 300 MG; Start 03/18/17 at 21:00 Metoprolol Tartrate (Lopressor) 25 mg DAILY PO ; Start 03/19/17 at 09:00 Nitroglycerin (Nitroglycerin (Sl Tab) 0.4 Mg) 1 tab [id number] PRN SL CHEST PAIN ; Start 03/18/17 at 14:00 Ranolazine (Ranexa) 500 mg Q12 PO Last administered on 03/20/17 08:37; Admin Dose 500 MG; Start 03/18/17 at 21:00 Tramadol HCl (Ultram) 50 mg BID PRN PO PAIN Last administered on 03/19/17 22: 46; Admin Dose 50 MG; Start 03/18/17 at 14:00 Alprazolam (Xanax) 0.5 mg DAILY PRN PO ANXIETY Last administered on 03/18/17 14:55; Admin Dose 0.5 MG; Start 03/18/17 at 14:30 Pantoprazole (Protonix Tab) 40 mg DAILY@06 PO Last administered on 03/20/17 05 :37; Admin Dose 40 MG; Start 03/20/17 at 06:00 CHAITANYA BIANCHI March 20, 2017 10:38
--- NOTE | 2017-03-20 10:52 | CARRPT ---
DATE OF PROCEDURE: 03/20/2017 LEXISCAN CARDIOLITE STRESS TEST, ELECTROCARDIOGRAM PORTION REASON FOR STRESS TESTING: Chest pain, assess for ischemia. BASELINE VITAL SIGNS AND ELECTROCARDIOGRAM: Pulse 62, blood pressure 144/63. Electrocardiogram was sinus rhythm, rate of 62, normal axis, normal intervals, associated PACs with anterior T-wave inver nany. PROCEDURE: The patient underwent standard Lexiscan infusion protocol over 10 seconds followed by ra diolabeled tracer. The patient's test was stopped due to completion of protocol. Maximal achieved blood pressure during the test 160/65. Maximal achieved heart rate during the test 100. ELECTROCARDIOGRAM FINDINGS: The patient did not develop any new Lexiscan-induced ST or T-wave funes es from baseline abnormalities. Positive PACs. No PVCs. SYMPTOMS: The patient had complaints of dizziness during stress testing, but no chest pain, no shor tness of breath. IMPRESSION: 1. No Lexiscan-induced ST or T-wave changes from baseline abnormalities diagnostic of cardiac ische amol. 2. No complaints of chest pain or shortness of breath during stress testing. Positive dizziness wh ich resolved during recovery. 3. No documented premature ventricular contractions during stress testing. 4. Report of nuclear images to follow in a separate dictation. Dictated By: CHAITANYA JUNIOR/SUNNY Conf#: [id number] DID#: [id number] CC: JONN ALEXANDER MD;*EndCC*
--- NOTE | 2017-03-20 11:49 | PN ---
Date/Time of Note Date/Time of Note DATE: 03/20/17 TIME: 11:46 Assessment/Plan VTE Prophylaxis VTE Prophylaxis Intervention: other Lines/Catheters IV Catheter Type (from Nrs): Peripheral IV Urinary Cath still in place: No Assessment/Plan Assessment/Plan 76yo F with 1. Chest pain ACS has been ruled out * EGD showed just mild gastritis and esophagitis 2. Chronic Angina with non obstructive CAD on C 09/14/15 3. HTN 4. Dyslipidemia 5. Paroxysmal Afib : 6. Chronic lung nodules on CT 7. Hypothyroidism 8. Osteoporosis on fosamax 9. CKD w/out PAYAM 10. Bradycardia with pauses PLAN: * Follow nuclear imaging stress test final report, * Follow-up cardiology final recommendations regarding bradycardia [? Pacemaker ]. Patient has been taking of calcium channel as well as beta blockers. PROPHYLAXIS: PPI and Eliquis Subjective 24 Hr Interval Summary Free Text/Dictation Patient just returned from stress test, lethargic. Exam/Review of Systems Vital Signs Vitals Vital Signs Date Time Temp Pulse Resp B/P Pulse Ox O2 Delivery O2 Flow Rate FiO2 03/20/17 11:27 97.7 94 20 110/74 98 03/19/17 19:31 Room Air 03/18/17 07:30 2 Intake and Output 03/19/17 03/19/17 03/20/17 15:00 23:00 07:00 Intake Total 480 ml 240 ml Output Total 1000 ml Balance -520 ml 240 ml Exam Constitutional: alert, oriented, No distress Psych: Calm Head: atraumatic, normocephalic Eyes: PERRL, No icteric ENMT: mucosa pink and moist, nl external ears & nose Neck: non-tender, supple, No jvd Respiratory: clear to auscultation, normal air movement Cardiovascular: irregular rhythm, nl pulses, No jugular venous distention (JVD), No murmurs/extra sounds, No regular rate and rhythm Gastrointestinal: bowel sounds, non-tender, soft Musculoskeletal: nl extremities to inspection Extremities: No edema Neurological: nl mental status, nl speech, Results Result Diagram: 03/20/17 0707 03/20/17 0707 Results 24 hrs Laboratory Tests Test 03/20/17 07:07 White Blood Count 4.2 L Red Blood Count 3.78 L Hemoglobin 11.2 L Hematocrit 33.4 L Mean Corpuscular Volume 88.4 Mean Corpuscular Hemoglobin 29.6 Mean Corpuscular Hemoglobin Concent 33.5 Red Cell Distribution Width 13.0 Platelet Count 231 Mean Platelet Volume 10.8 H Neutrophils % 59.3 Lymphocytes % 30.3 Monocytes % 7.1 Eosinophils % 2.4 Basophils % 0.7 Nucleated Red Blood Cells % 0.0 Neutrophils # 2.5 Lymphocytes # 1.3 Monocytes # 0.3 Eosinophils # 0.1 Basophils # 0.0 Nucleated Red Blood Cells # 0.0 Sodium Level 136 Potassium Level 4.6 Chloride Level 106 Carbon Dioxide Level 23 Anion Gap 12 Blood Urea Nitrogen 22 H Creatinine 1.41 H Glucose Level 88 Calcium Level 9.6 Troponin I < 0.012 Triglycerides Level 112 Cholesterol Level 123 LDL Cholesterol, Calculated 54 HDL Cholesterol 47 Cholesterol/HDL Ratio 2.6 Medications Medications Current Medications Apixaban (Eliquis) 5 mg BID PO Last administered on 03/20/17 08:36; Admin Dose 5 MG; Start 03/18/17 at 21:00 Benazepril HCl (Lotensin) 20 mg AM PO Last administered on 03/20/17 08:38; Admin Dose 20 MG; Start 03/19/17 at 09:00 Cholecalciferol (Vitamin D) 2,000 unit DAILY PO Last administered on 03/20/17 08:36; Admin Dose 2,000 UNIT; Start 03/19/17 at 09:00 Fenofibrate (Tricor) 48 mg DAILY PO Last administered on 03/20/17 08:37; Admin Dose 48 MG; Start 03/19/17 at 09:00 Gabapentin (Neurontin) 300 mg QHS PO Last administered on 03/19/17 20:57; Admin Dose 300 MG; Start 03/18/17 at 21:00 Metoprolol Tartrate (Lopressor) 25 mg DAILY PO ; Start 03/19/17 at 09:00 Nitroglycerin (Nitroglycerin (Sl Tab) 0.4 Mg) 1 tab [id number] PRN SL CHEST PAIN ; Start 03/18/17 at 14:00 Ranolazine (Ranexa) 500 mg Q12 PO Last administered on 03/20/17 08:37; Admin Dose 500 MG; Start 03/18/17 at 21:00 Tramadol HCl (Ultram) 50 mg BID PRN PO PAIN Last administered on 03/19/17 22: 46; Admin Dose 50 MG; Start 03/18/17 at 14:00 Alprazolam (Xanax) 0.5 mg DAILY PRN PO ANXIETY Last administered on 03/18/17 14:55; Admin Dose 0.5 MG; Start 03/18/17 at 14:30 Pantoprazole (Protonix Tab) 40 mg DAILY@06 PO Last administered on 03/20/17 05 :37; Admin Dose 40 MG; Start 03/20/17 at 06:00 Procedures Procedures DATE OF PROCEDURE: 03/20/2017 LEXISCAN CARDIOLITE STRESS TEST, ELECTROCARDIOGRAM PORTION REASON FOR STRESS TESTING: Chest pain, assess for ischemia. BASELINE VITAL SIGNS AND ELECTROCARDIOGRAM: Pulse 62, blood pressure 144/63. Electrocardiogram was sinus rhythm, rate of 62, normal axis, normal intervals, associated PACs with anterior T-wave inversion. PROCEDURE: The patient underwent standard Lexiscan infusion protocol over 10 seconds followed by radiolabeled tracer. The patient's test was stopped due to completion of protocol. Maximal achieved blood pressure during the test 160/ 65. Maximal achieved heart rate during the test 100. ELECTROCARDIOGRAM FINDINGS: The patient did not develop any new Lexiscan- induced ST or T-wave changes from baseline abnormalities. Positive PACs. No PVCs. SYMPTOMS: The patient had complaints of dizziness during stress testing, but no chest pain, no shortness of breath. IMPRESSION: 1. No Lexiscan-induced ST or T-wave changes from baseline abnormalities diagnostic of cardiac ischemia. 2. No complaints of chest pain or shortness of breath during stress testing. Positive dizziness which resolved during recovery. 3. No documented premature ventricular contractions during stress testing. 4. Report of nuclear images to follow in a separate dictation. Dictated By: CHAITANYA JUNIOR/SUNNY Conf#: [id number] DID#: [id number] CC: JONN ALEXANDER MD;*EndCC* JONN ALEXANDER March 20, 2017 11:49
--- NOTE | 2017-03-20 12:57 | RADRPT ---
PROCEDURE: Lexiscan myocardial perfusion study CLINICAL INDICATION: 76 -year-old patient complaining of chest pain. TECHNIQUE: Lexiscan 0.4 mg intravenously separate acquisition gated myocardial perfusion SPECT usi ng Tc 99m Myoview 31.4 mCi intravenously at stress and Tc-99m Myoview, 10.1 mCi intravenously at res t was performed using the rest/stress sequence. Poststress Myoview SPECT images were obtained in th e supine position. COMPARISON: No prior studies. FINDINGS: Perfusion images reveal no evidence of perfusion defects. Lexiscan post stress gated SPECT images demonstrate no wall motion abnormalities. IMPRESSION: 1. No evidence of perfusion defects. 2. No wall motion abnormalities. 3. The left ventricle ejection fraction at stress is greater than 70%. A call report was made to Dr. Parra at 12:56 p.m. on March 20, 2017 RPTAT: HH .Caprice Calixto MD, Date Time Electronically viewed and signed by .Caprice Calixto MD, on 03/20/2017 12:57 .L/
--- NOTE | 2017-03-20 14:15 | PN ---
Date/Time of Note Date/Time of Note DATE: 03/20/17 TIME: 14:10 Assessment/Plan VTE Prophylaxis VTE Prophylaxis Intervention: ambulation Lines/Catheters IV [facility]ter Type [facility]from [facility]): Peripheral IV Urinary Cath still in place: No Assessment/Plan Assessment/Plan Assessment * Chest pain resolved EGD Mild distal esophagitis. . Mild gastritis rule out H. pylori infection, biopsies obtained. Hypertension * Osteoporosis * Hypertension * History of atrial fibrillation Plan * PPI for 2 weeks * continue present management Subjective 24 Hr Interval Summary Free Text/Dictation * Course reviewed with RN * Patient seen and examined * No chest pain * EGD 03/19/2017 Mild distal esophagitis. Mild gastritis rule out H. pylori infection, biopsies obtained. Exam/Review of Systems Vital Signs Vitals Vital Signs Date Time Temp Pulse Resp B/P Pulse Ox O2 Delivery O2 Flow Rate FiO2 03/20/17 12:33 64 03/20/17 11:27 97.7 20 110/74 98 03/19/17 19:31 Room Air 03/18/17 07:30 2 Intake and Output 03/19/17 03/19/17 03/20/17 15:00 23:00 07:00 Intake Total 480 ml 240 ml Output Total 1000 ml Balance -520 ml 240 ml Exam Constitutional: alert, oriented Neck: non-tender, supple Respiratory: clear to auscultation, normal air movement Cardiovascular: nl pulses, regular rate and rhythm Gastrointestinal: non-tender, soft Musculoskeletal: nl extremities to inspection Results Result Diagram: 03/20/17 0707 03/20/17 0707 Results 24 hrs Laboratory Tests Test 03/20/17 07:07 White Blood Count 4.2 L Red Blood Count 3.78 L Hemoglobin 11.2 L Hematocrit 33.4 L Mean Corpuscular Volume 88.4 Mean Corpuscular Hemoglobin 29.6 Mean Corpuscular Hemoglobin Concent 33.5 Red Cell Distribution Width 13.0 Platelet Count 231 Mean Platelet Volume 10.8 H Neutrophils % 59.3 Lymphocytes % 30.3 Monocytes % 7.1 Eosinophils % 2.4 Basophils % 0.7 Nucleated Red Blood Cells % 0.0 Neutrophils # 2.5 Lymphocytes # 1.3 Monocytes # 0.3 Eosinophils # 0.1 Basophils # 0.0 Nucleated Red Blood Cells # 0.0 Sodium Level 136 Potassium Level 4.6 Chloride Level 106 Carbon Dioxide Level 23 Anion Gap 12 Blood Urea Nitrogen 22 H Creatinine 1.41 H Glucose Level 88 Calcium Level 9.6 Troponin I < 0.012 Triglycerides Level 112 Cholesterol Level 123 LDL Cholesterol, Calculated 54 HDL Cholesterol 47 Cholesterol/HDL Ratio 2.6 Medications Medications Current Medications Apixaban (Eliquis) 5 mg BID PO Last administered on 03/20/17 08:36; Admin Dose 5 MG; Start 03/18/17 at 21:00 Benazepril HCl (Lotensin) 20 mg AM PO Last administered on 03/20/17 08:38; Admin Dose 20 MG; Start 03/19/17 at 09:00 Cholecalciferol (Vitamin D) 2,000 unit DAILY PO Last administered on 03/20/17 08:36; Admin Dose 2,000 UNIT; Start 03/19/17 at 09:00 Fenofibrate (Tricor) 48 mg DAILY PO Last administered on 03/20/17 08:37; Admin Dose 48 MG; Start 03/19/17 at 09:00 Gabapentin (Neurontin) 300 mg QHS PO Last administered on 03/19/17 20:57; Admin Dose 300 MG; Start 03/18/17 at 21:00 Metoprolol Tartrate (Lopressor) 25 mg DAILY PO ; Start 03/19/17 at 09:00 Nitroglycerin (Nitroglycerin (Sl Tab) 0.4 Mg) 1 tab [id number] PRN SL CHEST PAIN ; Start 03/18/17 at 14:00 Ranolazine (Ranexa) 500 mg Q12 PO Last administered on 03/20/17 08:37; Admin Dose 500 MG; Start 03/18/17 at 21:00 Tramadol HCl (Ultram) 50 mg BID PRN PO PAIN Last administered on 03/19/17 22: 46; Admin Dose 50 MG; Start 03/18/17 at 14:00 Alprazolam (Xanax) 0.5 mg DAILY PRN PO ANXIETY Last administered on 03/18/17 14:55; Admin Dose 0.5 MG; Start 03/18/17 at 14:30 Pantoprazole (Protonix Tab) 40 mg DAILY@06 PO Last administered on 03/20/17 05 :37; Admin Dose 40 MG; Start 03/20/17 at 06:00 ARCHIE PONCE MD March 20, 2017 14:15
[2017-03-20] MEDS: traMADol 50 MG TAB PO PRN ×2 (17:16→21:25)
[2017-03-20] MEDS: GABAPENTIN 300 MG CAP PO SCH (21:12)
--- NOTE | 2017-03-20 21:18 | RADRPT ---
Echocardiogram Report Patient Name: CHRISTY PAVON Gender: Female Date: 1940 Study Date: 20-Mar-2017 Petroleum Geologist: TAYLOR Mcgowan. [facility] Location: 5552 Ref. Physician: CHAITANYA PARRA Quality: Adequate Procedures: Transthoracic echocardiogram with complete 2D, M-Mode, and doppler examination. Indications: Chest Pain. 2D/M Mode Doppler Measurement Value Normal Ranges Measurement Value Normal Ranges LVIDd 2D 4.3 3.5 - 5.6 cm THAD Vmax 1.9 cm2 LVIDs 2D 2.7 2.1 - 4.1 cm AV Peak Davion 1.6 m/sec FS 2D 36.7 % AV Peak PG 11.0 mmHg LVPWd 2D 0.9 0.6 - 1.1 cm LVOT Peak Davion 1.2 m/sec IVSd 2D 0.9 0.6 - 1.1 cm LVOT Peak PG 6.0 mmHg IVS/LVPW 2D 1.0 TR Peak Davion 2.3 m/sec AoR Diam 2D 2.5 2.0 - 3.7 cm TR Peak PG 21.0 mmHg LA/Ao 2D 1 0 - 1 RVSP 24.0 mmHg EDV 2D 78.4 cm3 ESV 2D 19.9 cm3 LA Dimen 2D 3.2 2.3 - 4.0 cm LVOT Diam 1.8 cm LVOT Area 2.5 cm2 Findings Left Ventricle: Normal left ventricular systolic function. Normal left ventricular cavity size. Normal left ventricular wall thickness. Ejection fraction is visually estimated at 55 %. Right Ventricle: Normal right ventricular size. Normal right ventricular systolic function. Left Atrium: The left atrium is normal in size. Right Atrium: The right atrium is normal in size. Mitral Valve: Mild mitral leaflet calcification. Mild mitral annular calcification. Mild to moderate mitral valve regurgitation. Aortic Valve: Normal appearance of the aortic valve. No significant aortic stenosis or insufficiency. Tricuspid Valve: Normal appearance of the tricuspid valve. Estimated peak PA systolic pressure 24 mmHg. There is mild tricuspid regurgitation. Pulmonic Valve: Normal pulmonic valve appearance. Pericardium: Normal pericardium with no significant pericardial effusion. Aorta: Normal aortic root. IVC: The IVC is not well visualized. Conclusions 1.Normal left ventricular systolic function. Normal left ventricular cavity size. Normal left ventricular wall thickness. Ejection fraction is visually estimated at 55 %. 2.Mild mitral leaflet calcification. Mild mitral annular calcification. Mild to moderate mitral valve regurgitation. 3.Normal appearance of the tricuspid valve. Estimated peak PA systolic pressure 24 mmHg. There is mild tricuspid regurgitation. Electronically Signed By: Chaitanya Parra 20-Mar-2017 21:16:45 -0700 Patient Name: CHRISTY PAVON Study Date: 20-Mar-2017 [id number]
--- NOTE | 2017-03-20 21:29 | RADRPT ---
Vent Rate: 54 bpm RR Interval: [address] Interval: 182 msec QRS Duration: 100 msec QT Interval: 454 msec QTC Interval: 430 msec P-R-T [place]: 52 - 10 - 44 degrees Sinus bradycardia with premature atrial complexes T wave abnormality, consider anterior ischemia Abnormal ECG Electronically Signed By: Viktor Parra [id number]
[2017-03-21] VITALS (10 sets, daily range): BP systolic 119–166; BP diastolic 58–70; PULSE 58–65; RESP 17–20
[2017-03-21] MEDS ORDERED: ACETAMINOPHEN 500 MG TAB PO ONE (00:49)
[2017-03-21] MEDS ORDERED: DIPHENHYDRAMINE 50 MG INJ IV ONE (01:00)
[2017-03-21] MEDS ORDERED: hydrALAzine 20 MG INJ IV PRN (01:00)
[2017-03-21] MEDS: LEVOTHYROXINE 75 MCG TAB PO SCH (05:43)
[2017-03-21] MEDS: PANTOPRAZOLE (EC) 40 MG TAB PO SCH (05:43)
[2017-03-21 07:20] LABS: ADD SCAN DIFF NO
[2017-03-21 07:38] LABS: BASOPHILS % 0.2 % (0.0-2.0); EOSINOPHILS # 0.1 10^3/ul (0.0-0.5); EOSINOPHILS % 2.2 % (0.0-7.0); HEMATOCRIT 35.5 % (37.0-47.0); HEMOGLOBIN 11.8 g/dl (12.0-16.0); LYMPHOCYTES # 1.2 10^3/ul (0.8-2.9); LYMPHOCYTES % 23.7 % (15.0-51.0); MEAN CORPUSCULAR HEMOGLOBIN 29.4 pg (29.0-33.0); MEAN CORPUSCULAR HGB CONC 33.2 g/dl (32.0-37.0); MEAN CORPUSCULAR VOLUME 88.5 fl (82.0-101.0); MEAN PLATELET VOLUME 10.6 fl (7.4-10.4); MONOCYTE # 0.3 10^3/ul (0.3-0.9); MONOCYTES % 6.6 % (0.0-11.0); NEUTROPHIL # 3.4 10^3/ul (1.6-7.5); NEUTROPHILS % 66.9 % (39.0-77.0); PLATELET COUNT 230 10^3/UL (140-415); RED BLOOD COUNT 4.01 10^6/ul (4.20-5.40); RED CELL DISTRIBUTION WIDTH 12.8 % (11.5-14.5)
[2017-03-21 07:57] LABS: POTASSIUM 4.5 mmol/L (3.5-5.1)
[2017-03-21 08:00] LABS: CREATININE 1.58 mg/dl (0.44-1.00)
[2017-03-21 08:01] LABS: CALCIUM 9.6 mg/dl (8.4-10.2)
[2017-03-21] MEDS: FENOFIBRATE 48 MG TAB PO SCH (08:41)
[2017-03-21] MEDS: CHOLECALCIFEROL 2,000 UNIT CAP PO SCH (08:41)
[2017-03-21] MEDS: BENAZEPRIL 20 MG TAB PO SCH (08:41)
[2017-03-21] MEDS: APIXABAN 5 MG TABLET PO SCH (08:41)
[2017-03-21] MEDS: METOPROLOL 25 MG TAB PO SCH (08:42)
[2017-03-21] MEDS: RANOLAZINE (SR) 500 MG TAB PO SCH (08:42)
--- NOTE | 2017-03-21 11:41 | CONS ---
Date/Time of Note Date/Time of Note DATE: 03/21/17 TIME: 11:37 Assessment/Plan Assessment/Plan Additional Assessment/Plan Chest pain, resolved EGD: Mild distal esophagitis. Mild gastritis rule out H. pylori infection, biopsies obtained. Hypertension Osteoporosis History of atrial fibrillation Plan PPI for 2 weeks Continue present management Patient stable from GI standpoint Review pathology Further recommendations depend on clinical course Patient seen in collaboration with Dr. Alanis Consultation Date/Type/Reason Admit Date/Time March 20, 2017 at 12:12 Initial Consult Date 03/18/17 Type of Consultation: Gastroenterology Referring Provider: JONN ALEXANDER 24 HR Interval Summary Free Text/Dictation Patient tolerating diet Status post EGD Follow-up in office for biopsy results Patient stable for discharge from GI standpoint Exam/Review of Systems Vital Signs Vitals Vital Signs Date Time Temp Pulse Resp B/P Pulse Ox O2 Delivery O2 Flow Rate FiO2 03/21/17 11:10 98.6 59 18 138/65 95 03/19/17 19:31 Room Air 03/18/17 07:30 2 Intake and Output 03/20/17 03/20/17 03/21/17 15:00 23:00 07:00 Intake Total 720 ml 300 ml Output Total 1400 ml Balance -680 ml 300 ml Exam Constitutional: alert, oriented Neck: non-tender, supple Respiratory: clear to auscultation, normal air movement Cardiovascular: nl pulses, regular rate and rhythm Gastrointestinal: non-tender, soft Musculoskeletal: nl extremities to inspection Results Result Diagram: 03/21/17 0700 03/21/17 0700 Results 24 hrs Laboratory Tests Test 03/21/17 07:00 White Blood Count 5.0 Red Blood Count 4.01 L Hemoglobin 11.8 L Hematocrit 35.5 L Mean Corpuscular Volume 88.5 Mean Corpuscular Hemoglobin 29.4 Mean Corpuscular Hemoglobin Concent 33.2 Red Cell Distribution Width 12.8 Platelet Count 230 Mean Platelet Volume 10.6 H Neutrophils % 66.9 Lymphocytes % 23.7 Monocytes % 6.6 Eosinophils % 2.2 Basophils % 0.2 Nucleated Red Blood Cells % 0.0 Neutrophils # 3.4 Lymphocytes # 1.2 Monocytes # 0.3 Eosinophils # 0.1 Basophils # 0.0 Nucleated Red Blood Cells # 0.0 Sodium Level 138 Potassium Level 4.5 Chloride Level 102 Carbon Dioxide Level 23 Anion Gap 18 H Blood Urea Nitrogen 22 H Creatinine 1.58 H Glucose Level 89 Calcium Level 9.6 Medications Medications Current Medications Apixaban (Eliquis) 5 mg BID PO Last administered on 03/21/17 08:41; Admin Dose 5 MG; Start 03/18/17 at 21:00 Benazepril HCl (Lotensin) 20 mg AM PO Last administered on 03/21/17 08:41; Admin Dose 20 MG; Start 03/19/17 at 09:00 Cholecalciferol (Vitamin D) 2,000 unit DAILY PO Last administered on 03/21/17 08:41; Admin Dose 2,000 UNIT; Start 03/19/17 at 09:00 Fenofibrate (Tricor) 48 mg DAILY PO Last administered on 03/21/17 08:41; Admin Dose 48 MG; Start 03/19/17 at 09:00 Gabapentin (Neurontin) 300 mg QHS PO Last administered on 03/20/17 21:12; Admin Dose 300 MG; Start 03/18/17 at 21:00 Metoprolol Tartrate (Lopressor) 25 mg DAILY PO Last administered on 03/21/17 08:42; Admin Dose 25 MG; Start 03/19/17 at 09:00 Nitroglycerin (Nitroglycerin (Sl Tab) 0.4 Mg) 1 tab [id number] PRN SL CHEST PAIN ; Start 03/18/17 at 14:00 Ranolazine (Ranexa) 500 mg Q12 PO Last administered on 03/21/17 08:42; Admin Dose 500 MG; Start 03/18/17 at 21:00 Tramadol HCl (Ultram) 50 mg BID PRN PO PAIN Last administered on 03/20/17 21: 25; Admin Dose 50 MG; Start 03/18/17 at 14:00 Alprazolam (Xanax) 0.5 mg DAILY PRN PO ANXIETY Last administered on 03/18/17 14:55; Admin Dose 0.5 MG; Start 03/18/17 at 14:30 Pantoprazole (Protonix Tab) 40 mg DAILY@06 PO Last administered on 03/21/17 05 :43; Admin Dose 40 MG; Start 03/20/17 at 06:00 TRIP YANEZ March 21, 2017 11:41
[2017-03-21] MEDS ORDERED: OMEP20CA16 PO (11:44)
[2017-03-21] MEDS ORDERED: CYCL5TAB PO (11:44)
--- NOTE | 2017-03-21 11:44 | DS ---
Date/Time of Note Date/Time of Note DATE: 03/21/17 TIME: 11:41 Discharge Summary Admission/Discharge Info Admit Date/Time March 20, 2017 at 12:12 Discharge Date/Time Tentative date of discharge: March 21, 2017 Final Diagnosis 76yo F with 1. Chest pain ACS has been ruled out * EGD showed just mild gastritis and esophagitis 2. Chronic Angina with non obstructive CAD on [facility] 09/14/15 3. HTN 4. Dyslipidemia 5. Paroxysmal Afib : 6. Chronic lung nodules on CT 7. Hypothyroidism 8. Osteoporosis on fosamax 9. CKD w/out PAYAM 10. Bradycardia with pause 11. Upper back pain: Likely musculoskeletal in origin. . Patient Condition: Stable Consults Viktor Parra: Cardiology Anna Alanis: Gastroenterology . Procedures See hospital course. . Hx of Present Illness Documented history March 20, 2017 PRESENTING COMPLAINT: acute onset of L sided chest pain 2am HISTORY OF PRESENTING COMPLAINT: This is a pleasant 76-year-old female who was a weekend from sleep last night because of chest pain. Said to be midsternal and radiates into her upper back. Pain was not associated with diaphoresis but patient did feel like she could not catch her breath. Patient has had no fever or cough. Patient does have history of gastroesophageal reflux intermittently. Patient does take Fosamax for osteoporosis. Pain was not relieved by sublingual nitroglycerin even though the patient took 2 pills, but was eventually relieved when she got nitroglycerin sprays in the ambulance in route to the emergency room. She is currently pain-free. She is being admitted to rule out an acute coronary syndrome. Initial ER evaluation has been unremarkable, my suspicion is patient might have a gastroenterologic cause of her pain in view of her medication history. . Hospital Course The patient was admitted, and ruled out for an acute coronary syndrome with 3 sets of cardiac enzymes. The patient had previously had a CT angiogram in February 19, 2016 and this had shown multiple lung nodules and no CT evidence of pulmonary embolus. However as the patient had no tachycardia or hypoxia, there was low risk of pulmonary emboli. Patient was complaining of upper back pain associated with her chest pain, so an aortic ultrasound has been ordered and final results are still pending. Also to evaluate lung nodules the patient has also to get a CT of the chest without IV contrast because of CKD. If these come back nonemergent, patient will be discharged home for outpatient follow- up. Gastroenterology consultation was also obtained for possible upper GI endoscopy. March 19, 2017 she underwent a 2D echocardiogram that showed EF of 55 % without significant out valvular deficits or elevated systolic peak PA pressure. GI also saw the patient, did an endoscopy and found mild distal esophagitis with mild gastritis rule out H pylori, and biopsies were obtained. Pathology from the biopsies are still pending, and patient to follow-up out as outpatient with GI about these. She has been started on twice daily PPI therapy. However on telemetry monitoring on March 19 she was found to have bradycardia with greater than 4 second pauses. Beta-doretha was patient denies any allergies doing a discharge summary and patient, she has had bad chest that radiated to her upper back so she seems to get better and that I thought it was GI she has had VAC had a tach that patient had a CT and Sharmin in February but apparently was 2016 [id number] male that has also shown that he has some pulmonary nodules and recommended repeat CT in 3-6 months which is been more than a year now think any thing Cough stopped and she has been monitored on telemetry for up to 48 hours since without any further pauses. She also underwent a nuclear medicine Lexiscan March 20, 2017 that showed no evidence of perfusion defects no wall motion abnormalities, and left ventricle ejection fraction at stress greater than 70%. Of note is that the patient sees Dr. Parra as outpatient; hence at this time Dr. Parra will hold off on pacemaker placement, keep patient off AV tyrone blockers, and review again in the office if pacemaker is warranted. This has been discussed with the patient and her son and the risks and benefits communicated to them, and in agreement with the plan. Her discharge however is still pending cardiology clearance. Comorbidities were also aggressively managed as per Med records. Patient at this time has been evaluated and examined in detail and is assessed to be in stable condition and ready for discharge. . Home Meds Active Scripts Cyclobenzaprine Hcl* (Cyclobenzaprine Hcl*) 5 Mg Tablet, 5 MG PO TID, #45 TAB Prov:JONN ALEXANDER 03/21/17 Omeprazole* (Omeprazole*) 20 Mg Capsule., 20 MG PO BID, #60 CAP Prov:JONN ALEXANDER 03/21/17 Reported Medications Nitroglycerin* (Nitroglycerin* SL) 0.4 Mg Tab.subl, 0.4 MG SL Q5MIN Y for CHEST PAIN, BOTTLE 03/18/17 Apixaban* (Eliquis*) 5 Mg Tablet, 5 MG PO BID, TAB 03/18/17 Tramadol Hcl* (Ultram*) 50 Mg Tablet, 50 MG PO BID Y for PAIN, TAB 03/18/17 Levothyroxine Sodium* (Levothyroxine Sodium*) 75 Mcg Tablet, 75 MCG PO BEFORE BREAKFAST, #30 TAB 03/18/17 Gabapentin* (Gabapentin*) 300 Mg Capsule, 300 MG PO QHS, #60 CAP 03/18/17 Alendronate Sodium* (Fosamax*) 70 Mg Tablet, 70 MG PO Q7D, #4 TAB 07/03/16 Ranolazine* (Ranexa*) 500 Mg Tab.sr.12h, 500 MG PO Q12, TAB 02/19/16 Cholecalciferol* (Vitamin D3*) 2,000 Unit Cap, 2000 UNIT PO DAILY, CAP 01/11/16 Fenofibrate Nanocrystallized* (Fenofibrate*) 48 Mg Tablet, 48 MG PO DAILY 01/11/16 Benazepril Hcl* (Benazepril Hcl*) 20 Mg Tablet, 20 MG PO AM, TAB 07/03/15 Alprazolam* (Alprazolam*) 0.5 Mg Tablet, 0.5 MG PO DAILY Y for ANXIETY, TAB 07/03/15 Discontinued Reported Medications Metoprolol Tartrate* (Lopressor*) 25 Mg Tablet, 25 MG PO DAILY, TAB 07/03/15 Levothyroxine Sodium* (Levothyroxine Sodium*) 100 Mcg Tablet, 100 MCG PO BEFORE BREAKFAST, #30 TAB 07/03/16 Gabapentin* (Gabapentin*) 100 Mg Capsule, 100 MG PO DAILY, #90 CAP 01/11/16 Aspirin* (Aspirin* Chew) 81 Mg Tab.chew, 81 MG PO DAILY, TAB.CHEW 07/03/15 Discontinued Scripts Ranitidine Hcl* (Zantac*) 150 Mg Tablet, 150 MG PO BID, #60 TAB Prov:DAVID PUGH DO 07/01/16 Follow-up Plan Patient is to follow-up with Dr. Parra as per his instructions, and with her primary care physician within the next week to notify him/her of hospitalization events and to ensure continued resolution of symptoms. . Primary Care Provider João Lopez MD Time spent on discharge: > 30 minutes Pending Labs Laboratory Tests Test 03/21/17 07:00 White Blood Count 5.010^3/ul (4.8-10.8) Red Blood Count 4.0110^6/ul (4.20-5.40) Hemoglobin 11.8g/dl (12.0-16.0) Hematocrit 35.5% (37.0-47.0) Mean Corpuscular Volume 88.5fl (82.0-101.0) Mean Corpuscular Hemoglobin 29.4pg (29.0-33.0) Mean Corpuscular Hemoglobin Concent 33.2g/dl (32.0-37.0) Red Cell Distribution Width 12.8% (11.5-14.5) Platelet Count 91355^3/UL (140-415) Mean Platelet Volume 10.6fl (7.4-10.4) Neutrophils % 66.9% (39.0-77.0) Lymphocytes % 23.7% (15.0-51.0) Monocytes % 6.6% (0.0-11.0) Eosinophils % 2.2% (0.0-7.0) Basophils % 0.2% (0.0-2.0) Nucleated Red Blood Cells % 0.0/100WBC (0.0-0.0) Neutrophils # 3.410^3/ul (1.6-7.5) Lymphocytes # 1.210^3/ul (0.8-2.9) Monocytes # 0.310^3/ul (0.3-0.9) Eosinophils # 0.110^3/ul (0.0-0.5) Basophils # 0.010^3/ul (0.0-0.1) Nucleated Red Blood Cells # 0.010^3/ul (0.0-0.0) Sodium Level 138mmol/L (135-144) Potassium Level 4.5mmol/L (3.5-5.1) Chloride Level 102mmol/L (97-110) Carbon Dioxide Level 23mmol/L (21-31) Anion Gap 18 (8-16) Blood Urea Nitrogen 22mg/dl (7-20) Creatinine 1.58mg/dl (0.44-1.00) Glucose Level 89mg/dl (70-220) Calcium Level 9.6mg/dl (8.4-10.2) JONN ALEXANDER March 21, 2017 11:44
--- NOTE | 2017-03-21 12:21 | CONS ---
Date/Time of Note Date/Time of Note DATE: 03/21/17 TIME: 12:15 Assessment/Plan Assessment/Plan Chief Complaint/Hosp Course IMPRESSION: 1. Chest pain, assess for acute coronary syndrome with negative troponins x3. Lexiscan negative for ischemia 2. Bradycardia with pauses greater than 4 seconds. 3. History of paroxysmal atrial fibrillation on systemic anticoagulation. 4. History of coronary artery disease, nonobstructive by catheterization in 2014. 5. Hypertension, under reasonable control. 6. Possible angina.-negative troponin x 3/No ischemia by lexiscan 7. Renal failure. 8. Anemia. Recc; -tele -Hold BB/all tyrone agents and remain off at d/c -Continue ACEI -Continue ranexa -Continue PPI -Continue eliquis -Screening aortic RISSA given renal failure -Close outpatient cardiology f/u and outpatient monitoring to assess for recurrent benita off of BB Problems: Consultation Date/Type/Reason Admit Date/Time March 20, 2017 at 12:12 Initial Consult Date 03/18/17 Type of Consultation: Cardiology Reason for Consultation Chest pain Referring Provider: JONN ALEXANDER Exam/Review of Systems Vital Signs Vitals Vital Signs Date Time Temp Pulse Resp B/P Pulse Ox O2 Delivery O2 Flow Rate FiO2 03/21/17 11:10 98.6 59 18 138/65 95 03/19/17 19:31 Room Air 03/18/17 07:30 2 Intake and Output 03/20/17 03/20/17 03/21/17 15:00 23:00 07:00 Intake Total 720 ml 300 ml Output Total 1400 ml Balance -680 ml 300 ml Exam Review of Systems: CONSTITUTIONAL: No fevers, chills. PULMONARY: No sob CARDIOVASCULAR: No chest pain/palpitations GASTROINTESTINAL: No nausea/vomiting. GENITOURINARY: No hematuria/dysuria. MUSCULOSKELETAL: No myagias/arthalgias. PSYCHIATRIC: The patient denies depression. NEUROLOGIC: No weakness Constitutional: alert Psych: no complaints Head: normocephalic ENMT: mucosa pink and moist Neck: jvd (9 cm water), supple Respiratory: diminished breath sounds Cardiovascular: regular rate and rhythm Gastrointestinal: non-tender Musculoskeletal: muscle tone Extremities: edema, normal pulses Neurological: other (No focal deficits) Results Result Diagram: 03/21/17 0700 03/21/17 0700 Results 24 hrs Laboratory Tests Test 03/21/17 07:00 White Blood Count 5.0 Red Blood Count 4.01 L Hemoglobin 11.8 L Hematocrit 35.5 L Mean Corpuscular Volume 88.5 Mean Corpuscular Hemoglobin 29.4 Mean Corpuscular Hemoglobin Concent 33.2 Red Cell Distribution Width 12.8 Platelet Count 230 Mean Platelet Volume 10.6 H Neutrophils % 66.9 Lymphocytes % 23.7 Monocytes % 6.6 Eosinophils % 2.2 Basophils % 0.2 Nucleated Red Blood Cells % 0.0 Neutrophils # 3.4 Lymphocytes # 1.2 Monocytes # 0.3 Eosinophils # 0.1 Basophils # 0.0 Nucleated Red Blood Cells # 0.0 Sodium Level 138 Potassium Level 4.5 Chloride Level 102 Carbon Dioxide Level 23 Anion Gap 18 H Blood Urea Nitrogen 22 H Creatinine 1.58 H Glucose Level 89 Calcium Level 9.6 Medications Medications Current Medications Apixaban (Eliquis) 5 mg BID PO Last administered on 03/21/17 08:41; Admin Dose 5 MG; Start 03/18/17 at 21:00 Benazepril HCl (Lotensin) 20 mg AM PO Last administered on 03/21/17 08:41; Admin Dose 20 MG; Start 03/19/17 at 09:00 Cholecalciferol (Vitamin D) 2,000 unit DAILY PO Last administered on 03/21/17 08:41; Admin Dose 2,000 UNIT; Start 03/19/17 at 09:00 Fenofibrate (Tricor) 48 mg DAILY PO Last administered on 03/21/17 08:41; Admin Dose 48 MG; Start 03/19/17 at 09:00 Gabapentin (Neurontin) 300 mg QHS PO Last administered on 03/20/17 21:12; Admin Dose 300 MG; Start 03/18/17 at 21:00 Metoprolol Tartrate (Lopressor) 25 mg DAILY PO Last administered on 03/21/17 08:42; Admin Dose 25 MG; Start 03/19/17 at 09:00 Nitroglycerin (Nitroglycerin (Sl Tab) 0.4 Mg) 1 tab [id number] PRN SL CHEST PAIN ; Start 03/18/17 at 14:00 Ranolazine (Ranexa) 500 mg Q12 PO Last administered on 03/21/17 08:42; Admin Dose 500 MG; Start 03/18/17 at 21:00 Tramadol HCl (Ultram) 50 mg BID PRN PO PAIN Last administered on 03/20/17 21: 25; Admin Dose 50 MG; Start 03/18/17 at 14:00 Alprazolam (Xanax) 0.5 mg DAILY PRN PO ANXIETY Last administered on 03/18/17 14:55; Admin Dose 0.5 MG; Start 03/18/17 at 14:30 Pantoprazole (Protonix Tab) 40 mg DAILY@06 PO Last administered on 03/21/17 05 :43; Admin Dose 40 MG; Start 03/20/17 at 06:00 CHAITANYA BIANCHI March 21, 2017 12:21
--- NOTE | 2017-03-21 14:45 | RADRPT ---
PROCEDURE: CT Chest without contrast. CLINICAL INDICATION: Chest pain. Pulmonary nodule. TECHNIQUE: Multiple contiguous helical CT images of the chest were obtained without the administra tion of intravenous contrast. Coronal and sagittal reformatted images were obtained from the source images. CTDIvol (mGy): 11.72; Total Exam DLP (mGy-cm): 436.33. One or more of the following dose reduction techniques were utilized: - Automated exposure control. - Adjustment of the mA and/or kV according to patient size. - Use of iterative reconstruction technique. COMPARISON: Chest x-ray 03/18/2017. CTA chest 02/19/2016. FINDINGS: Limited imaging of the lower neck is unremarkable. The heart is enlarged and unchanged in size. There is no pericardial effusion. There is no mediast inal, hilar or axillary lymphadenopathy. Scattered few small mediastinal lymph nodes are present and unchanged. The thoracic aorta is normal in caliber. The pulmonary arteries are not enlarged. Low lung volumes are observed. Scattered atelectatic changes are seen within the lung bases. The p redominantly calcified 7 mm nodule of the superior segment of the right lower lobe is unchanged. Th e scattered few additional tiny micronodules measuring less than 4 mm are unchanged. There is no ev idence of new or suspicious pulmonary nodule. Scattered few additional tiny calcified nodules are o bserved and compatible with old granulomatous disease. the tracheobronchial tree is normal in calib er with mild diffuse bronchial wall thickening. There is no pleural effusion. Limited imaging of the upper abdomen is unremarkable. Mild degenerative changes of the thoracic spine are present. Chest wall soft tissues are unremarkab le. IMPRESSION: Low lung volumes with mild scattered basilar atelectatic changes. Mildly calcified and 7 mm nodule of the right lower lobe, unchanged. Imaging findings are most comp atible with a small granuloma or hamartoma. Scattered few tiny micronodules of the right lung, unchanged. No evidence of new or suspicious pulm onary nodule. Optional follow-up CT chest may be obtained in 1 year. RPTAT: HLST .Leslie Booker MD, Date Time Electronically viewed and signed by .Leslie Booker MD, on 03/21/2017 14:45 .T/
--- NOTE | 2017-03-21 14:54 | RADRPT ---
PROCEDURE: US aorta. CLINICAL INDICATION: Screening for aortic aneurysm TECHNIQUE: Multiple sonographic images of the aorta and iliac vessels was obtained utilizing basilia pranav, color-flow, compressive sonography and doppler imaging. The images were reviewed on a PACS wo [employer]. COMPARISON: None. FINDINGS: The aorta is normal in caliber with no evidence of abdominal aortic aneurysm. There is normal Doppler flow in the aorta and iliac vessels. The proximal aorta measures 1.5 cm. The mid aorta measures 1.1 cm. The distal aorta measures 1.0 cm. The right iliac artery measures 1.0 cm. The left iliac artery measures 0.8 cm. RPTAT: AA IMPRESSION: No evidence of abdominal aortic aneurysm. .Jose Antonio Sherwood MD, MD Date Time Electronically viewed and signed by .Jose Antonio Sherwood MD, MD on 03/21/2017 14:53 .S/
--- NOTE | 2017-03-21 16:56 | PDOCDIS ---
Discharge Instructions DIAGNOSIS Discharge Diagnosis: Chest pain CONDITION Patient Condition: Stable HOME CARE INSTRUCTIONS: Special Diet: Low Chol/Low Fat FOLLOW UP/APPOINTMENTS Appointments Followup with your primary doctor within the next 1-2 weeks. If you don't have one please let someone know, we can give you resources that may help you pick one. You may call Dr Kaveh Christian's office. he's accepting new patients Name, Degree: Kaveh Christian MD Specialty: Internal Medicine Comments: Office Address: [address] [place] [id number] Office Office You may also call your insurance company to assign one to you. Review your medication list with your nurse before leaving and if you need new prescriptions please let your nurse know. I may have made changes to your home medications or given you new prescriptions , please let your primary doctor know as well. Stay compliant with your medications and report any side effects to your PCP or pharmacist. Return to the ER if you have any concerns and cannot reach your doctors or call your insurance company, they usually have a nurse that can help you. REFERRALS Other Referrals Please followup with Dr Parra for cardiology Name, Degree: Viktor Parra MD Specialty: Cardiology Comments: Office Address: [id number] [place] [id number] Office Office Ways Operator: JONN Mosqueda March 21, 2017 16:56
== END 2017-03-21 18:34 | disposition home or self-care (01) | DRG 313 ==
LOC: FTE 04:50 → MS4 08:18 → OBSVTOIN 03-20 12:12
PROVIDERS: ADMIT Family Medicine; ATTEND Family Medicine
PROC: 0DB78ZX Excision of Stomach, Pylorus, Via Natural or Artificial Opening Endoscopic, Diagnostic (ICD-10-PCS; principal; 2017-03-19 20:30)
DX: R07.9 Chest pain, unspecified (principal); I25.10 Atherosclerotic heart disease of native coronary artery without angina pectoris; R00.1 Bradycardia, unspecified; I12.9 Hypertensive chronic kidney disease with stage 1 through stage 4 chronic kidney disease, or unspecified chronic kidney disease; I48.0 Paroxysmal atrial fibrillation; E78.5 Hyperlipidemia, unspecified; E03.9 Hypothyroidism, unspecified; M81.0 Age-related osteoporosis without current pathological fracture; N18.9 Chronic kidney disease, unspecified; K20.9 Esophagitis, unspecified; K29.70 Gastritis, unspecified, without bleeding; Z79.02 Long term (current) use of antithrombotics/antiplatelets; Z79.82 Long term (current) use of aspirin
CPT/HCPCS: 36415; 71010; 71250; 76775; 78452; 80048; 80061; 81001; 81003; 82550; 82553; 83036; 83735; 84443; 84484; 85025; 85610; 85730; 87086; 88305; 93005; 93017; 93306; G0378; A9500; A9505; J2785; J3010; J7030; J7040

== ENCOUNTER 2017-12-30 12:52 | Observation (INO) | END 2018-01-01 16:52 | disposition home or self-care (01) ==

== ENCOUNTER 2018-02-01 09:27 | Emergency (ER) | END 2018-02-01 14:35 | disposition home or self-care (01) ==

== ENCOUNTER 2018-02-11 01:22 | Observation (INO) | END 2018-02-12 13:35 | disposition home health service (06) ==

== ENCOUNTER 2019-01-06 10:12 | Emergency (ER) | payer MEDICARE, OTHER ==
[~2019-01-06] VITALS: Wt 71.7 kg
[~2019-01-06 10:12] MED LIST changes: +ACET-2047 PO; -ALEN70TA30 PO; +ALPR0.254 PO; -ALPR0.5T6 PO; +APIX5TAB PO; -ASPI81TA3 PO; -BENA20TA48 PO; +CHOL100062 PO; -CHOL2000 PO; -LEVO100T87 PO; +LEVO75TA5 PO; +METO-319 PO; -METO25TA4 PO; +OMEP20CA16 PO; +PYRI200T7 PO; -RANI150T9 PO; -TRAM50TA2 PO
[2019-01-06] MEDS ORDERED: ACETAMINOPHEN 325 MG TAB PO ONE (12:30)
[2019-01-06] MEDS ORDERED: FAMO-96 PO (12:58)
--- NOTE | 2019-01-06 13:01 | ERD ---
ER Documentation Chief Complaint Chief Complaint ABD PAIN X4 DAYS, NAUSEA, NO VOMITING/DIARRHEA HPI 78-year-old female presents with her family for evaluation of abdominal pain. Patient states that she over the course of the year she had intermittent episodes of similar type pain. Over the last 4 days, she reports a nonspecific epigastric abdominal pain without radiation. Associate with no nausea vomiting or diarrhea. Its associate with no fevers chills or urinary symptoms. Patient also reports no chest pain shortness of breath or cardiac type discomfort. Currently she reports the pain is mild ROS All systems reviewed and are negative except as per history of present illness. Medications Home Meds Active Scripts Famotidine* (Pepcid*) 20 Mg Tablet, 20 MG PO BID for 4 Days, #20 TAB Prov:CHARITY CADET 01/06/19 Apixaban* (Eliquis*) 5 Mg Tablet, 5 MG PO BID, #60 TAB Prov:ANGELICA LORENZO V. BANQUET WAITER/WAITRESS 02/12/18 Acetaminophen* (Acetaminophen*) 650 Mg Tablet, 650 MG PO Q6H PRN for PAIN AND OR ELEVATED TEMP, #30 TAB Prov:ANGELICA LORENZO V. BANQUET WAITER/WAITRESS 02/12/18 Gabapentin* (Gabapentin*) 100 Mg Capsule, 100 MG PO TID, #90 CAP Prov:ANGELICA LORENZO V. BANQUET WAITER/WAITRESS 02/12/18 Reported Medications Ranolazine* (Ranexa*) 500 Mg Tab.sr.12h, 500 MG PO Q12, TAB 02/11/18 Cholecalciferol* (Vitamin D3*) 1,000 Unit Tablet, 1000 UNIT PO DAILY, TAB 02/11/18 Omeprazole* (Omeprazole*) 20 Mg Capsule.dr, 20 MG PO DAILY, #30 CAP 02/01/18 Metoprolol Succinate* (Toprol XL*) 50 Mg Tab.er.24h, 50 MG PO DAILY, #30 TAB 02/01/18 Pyridoxine HCl (Vitamin B6) (B-6) 200 Mg Tablet.er, 200 MG PO DAILY, TAB 02/01/18 Levothyroxine Sodium* (Levothyroxine Sodium*) 75 Mcg Tablet, 75 MCG PO BEFORE BREAKFAST, #30 TAB 02/01/18 Fenofibrate Nanocrystallized* (Fenofibrate*) 48 Mg Tablet, 48 MG PO DAILY, TAB 4/1/18 Alprazolam* (Alprazolam*) 0.25 Mg Tablet, 0.25 MG PO DAILY PRN for ANXIETY, TAB 02/01/18 Allergies Allergies: Coded Allergies: No Known Allergy (Unverified , 02/11/18) PMhx/Soc History of Surgery: Yes (PACEMAKER PLACEMENT) Anesthesia Reaction: No Hx Neurological Disorder: No Hx Respiratory Disorders: Yes (CHRONIC LUNG NODULES) Hx Cardiac Disorders: Yes (CAD, AFIB, HYPERLIPIDEMIA, HTN) Hx Psychiatric Problems: Yes (DEPRESSION, ANXIETY) Hx Miscellaneous Medical Probl: No Hx Alcohol Use: No Hx Substance Use: No Hx Tobacco Use: No Smoking Status: Never smoker Physical Exam Vitals Vital Signs Date Temp Pulse Resp B/P (MAP) Pulse Ox O2 O2 Flow FiO2 Time Delivery Rate 01/06/19 98.9 61 17 142/59 95 10:21 (86) Physical Exam GENERAL: The patient is well developed and appropriate for usual state of health in no apparent distress HEENT: Pupils equal, round, and reactive to light. EOMI. There is no scleral icterus. NECK: C-spine is soft and supple, there is no meningismus. There is no cervical lymphadenopathy. LUNGS: Clear to auscultation bilaterally. There are no rales, wheezes or rhonchi. HEART: Regular rate and rhythm, no murmurs, clicks, rubs or gallops. A pacemaker is noted in the left upper chest wall ABDOMEN: Soft, non-tender, non-distended. There are bowel sounds in all four quadrants. No rebound or guarding. EXTREMITIES: There is no peripheral cyanosis or edema. No focal swelling or erythema. NEURO: The patient moves all four extremities with 5/5 strength. Cranial nerves II - XII are intact. Normal gait. Alert and oriented SKIN: There is no apparent rash or petechiae. HEME/LYMPHATIC: There is no evidence of excessive bruising or lymphedema. PSYCHIATRIC: The patient does not appear anxious or depressed. Result Diagram: 01/06/19 1137 01/06/19 1137 Results 24 hrs Laboratory Tests Test 01/06/19 11:37 White Blood Count 6.7 10^3/ul Red Blood Count 4.19 10^6/ul Hemoglobin 11.4 g/dl Hematocrit 36.2 % Mean Corpuscular Volume 86.4 fl Mean Corpuscular Hemoglobin 27.2 pg Mean Corpuscular Hemoglobin Concent 31.5 g/dl Red Cell Distribution Width 13.6 % Platelet Count 314 10^3/UL Mean Platelet Volume 10.4 fl Immature Granulocytes % 0.600 % Neutrophils % 72.2 % Lymphocytes % 20.1 % Monocytes % 5.2 % Eosinophils % 1.5 % Basophils % 0.4 % Nucleated Red Blood Cells % 0.0 /100WBC Immature Granulocytes # 0.040 10^3/ul Neutrophils # 4.8 10^3/ul Lymphocytes # 1.4 10^3/ul Monocytes # 0.4 10^3/ul Eosinophils # 0.1 10^3/ul Basophils # 0.0 10^3/ul Nucleated Red Blood Cells # 0.0 10^3/ul Urine Color YELLOW Urine Clarity CLEAR Urine pH 7.0 Urine Specific Gardner 1.012 Urine Ketones NEGATIVE mg/dL Urine Nitrite NEGATIVE mg/dL Urine Bilirubin NEGATIVE mg/dL Urine Urobilinogen NEGATIVE mg/dL Urine Leukocyte Esterase TRACE Lady/ul Urine Microscopic RBC 0 /HPF Urine Microscopic WBC 2 /HPF Urine Squamous Epithelial Cells FEW /HPF Urine Hemoglobin NEGATIVE mg/dL Urine Glucose NEGATIVE mg/dL Urine Total Protein NEGATIVE mg/dl Sodium Level 142 mmol/L Potassium Level 4.5 mmol/L Chloride Level 108 mmol/L Carbon Dioxide Level 22 mmol/L Anion Gap 12 Blood Urea Nitrogen 19 mg/dl Creatinine 1.53 mg/dl Est Glomerular Filtrat Rate mL/min mL/min Glucose Level 107 mg/dl Calcium Level 10.2 mg/dl Total Bilirubin 0.2 mg/dl Direct Bilirubin 0.00 mg/dl Indirect Bilirubin 0.2 mg/dl Aspartate Amino Transf (AST/SGOT) 23 IU/L Alanine Aminotransferase (ALT/SGPT) < 6 IU/L Alkaline Phosphatase 58 IU/L Total Protein 8.5 g/dl Albumin 4.5 g/dl Globulin 4.00 g/dl Albumin/Globulin Ratio 1.12 Lipase 172 U/L Current Medications Medications Dose Sig/Roger Start Time Status Last (Trade) Ordered Route PRN Stop Time Admin Dose Reason Admin 650 mg ONCE ONCE 01/06/19 DC 01/06/19 Acetaminophen PO 12:30 01/06/19 12:43 (Tylenol 12:31 Tab) Procedures/MDM Patient was taken to a room, seen and evaluated. Comfort measures were initiated. Diagnostic tests were ordered and reviewed. 3 LEAD RHYTHM STRIP: [Normal sinus rhythm without ectopy] RADIOLOGY: [reviewed with the radiologist] REEVALUATION: 1300: Diagnostic tests were appreciated and arrangements were made for outpatient management, serial examinations of her abdomen remained benign MEDICAL DECISION MAKIN-year-old female presents with emergency room with abdominal pain of uncertain etiology. Differential diagnosis entertained included gallstone disease, pancreatitis and other concerns. Her diagnostic workup seems to be benign. This does not appear to be cardiac in her description of the discomfort. Her diagnostic evaluation shows no evidence of cholestasis, pancreatitis or other high-risk concerns. Overall she has been asymptomatic in the emergency department and appropriate for outpatient care. Departure Diagnosis: Primary Impression: Abdominal pain Condition: Stable Patient Instructions: Abdominal Pain, Gastritis (Adult) Additional Instructions: Consulte a basilio mdico para el seguimiento segn lo discutido. Lleve anurag copia de los resultados de basilio prueba, si corresponde, a esta visita de seguimiento. Consulte a basilio mdico o regrese aqu si alan sntomas no mejoran marleni se esperaba. En cualquier momento, regrese al departamento de emergencias por cualquier cambio o empeoramiento en alan sntomas. CHARITY CADET Jan 06, 2019 13:00
[2019-01-06 13:09] VITALS: BP 141/64; PULSE 60; RESP 16
== END 2019-01-06 13:11 | disposition home or self-care (01) ==
LOC: E/R 10:12
DX: R10.13 Epigastric pain (principal); I10 Essential (primary) hypertension; I25.10 Atherosclerotic heart disease of native coronary artery without angina pectoris
CPT/HCPCS: 36415; 76705; 80053; 81001; 83690; 85025

== ENCOUNTER 2019-04-02 20:30 | Emergency (ER) | payer MEDICARE, OTHER ==
[~2019-04-02] VITALS: Wt 70.9 kg
[~2019-04-02 20:30] MED LIST changes: +FAMO-96 PO
[2019-04-02 20:39] VITALS: BP 159/85; PULSE 61; RESP 18
--- NOTE | 2019-04-02 21:50 | ERD ---
ER Documentation Chief Complaint Chief Complaint felt something bit her left wrist 4 days ago, c/o purple discoloration HPI 78-year-old female with past medical history of hypertension, A. fib on [facility] who presents with complaint of left wrist discoloration after reported insect bite 4 days ago. Patient states he thinks she was bit on the dorsal side of the left wrist. With local purple discoloration of skin which per patient has been improving She otherwise denies weakness, numbness of the affected limb. She denies fever, chills, bleeding or laceration from site. She denies any concerning respiratory symptoms such as shortness of breath or dyspnea, angioedema. She otherwise is without complaint. ROS All systems reviewed and are negative except as per history of present illness. Medications Home Meds Active Scripts Famotidine* (Pepcid*) 20 Mg Tablet, 20 MG PO BID for 4 Days, #20 TAB Prov:CHARITY CADET 01/06/19 Apixaban* (Eliquis*) 5 Mg Tablet, 5 MG PO BID, #60 TAB Prov:ANGELICA LORENZO V. BATTERY VENT PLUG INSERTER 02/12/18 Acetaminophen* (Acetaminophen*) 650 Mg Tablet, 650 MG PO Q6H PRN for PAIN AND OR ELEVATED TEMP, #30 TAB Prov:ANGELICA LORENZO V. BATTER[employer] PL[employer] INSERTER 02/12/18 Gabapentin* (Gabapentin*) 100 Mg Capsule, 100 MG PO TID, #90 CAP Prov:ANGELICA LORENZO V. BATTER[employer] PL[employer] INSERTER 02/12/18 Reported Medications Ranolazine* (Ranexa*) 500 Mg Tab.sr.12h, 500 MG PO Q12, TAB 02/11/18 Cholecalciferol* (Vitamin D3*) 1,000 Unit Tablet, 1000 UNIT PO DAILY, TAB 02/11/18 Omeprazole* (Omeprazole*) 20 Mg Capsule.dr, 20 MG PO DAILY, #30 CAP 02/01/18 Metoprolol Succinate* (Toprol XL*) 50 Mg Tab.er.24h, 50 MG PO DAILY, #30 TAB 02/01/18 Pyridoxine HCl (Vitamin B6) (B-6) 200 Mg Tablet.er, 200 MG PO DAILY, TAB 02/01/18 Levothyroxine Sodium* (Levothyroxine Sodium*) 75 Mcg Tablet, 75 MCG PO BEFORE BREAKFAST, #30 TAB 02/01/18 Fenofibrate Nanocrystallized* (Fenofibrate*) 48 Mg Tablet, 48 MG PO DAILY, TAB 02/01/18 Alprazolam* (Alprazolam*) 0.25 Mg Tablet, 0.25 MG PO DAILY PRN for ANXIETY, TAB 02/01/18 Allergies Allergies: Coded Allergies: No Known Allergy (Unverified , 02/11/18) PMhx/Soc History of Surgery: Yes (PACEMAKER PLACEMENT) Anesthesia Reaction: No Hx Neurological Disorder: No Hx Respiratory Disorders: Yes (CHRONIC LUNG NODULES) Hx Cardiac Disorders: Yes (CAD, AFIB, HYPERLIPIDEMIA, HTN) Hx Psychiatric Problems: Yes (DEPRESSION, ANXIETY) Hx Miscellaneous Medical Probl: No Hx Alcohol Use: No Hx Substance Use: No Hx Tobacco Use: No Smoking Status: Never smoker FmHx Family History: diabetes, coronary disease Physical Exam Vitals Vital Signs Date Temp Pulse Resp B/P (MAP) Pulse Ox O2 O2 Flow FiO2 Time Delivery Rate 04/02/19 98.9 61 18 159/85 97 20:39 (109) Physical Exam Const: No acute distress Head: Atraumatic Eyes: Normal Conjunctiva ENT: Normal External Ears, Nose and Mouth. Neck: Full range of motion. No meningismus. Resp: Clear to auscultation bilaterally Cardio: Regular rate and rhythm, no murmurs Abd: Soft, non tender, non distended. Normal bowel sounds Skin: Left wrist no petechiae, small area of purple discoloration but no edema, warmth, tenderness, 5 out of 5 strength to the left upper extremity, moving all fingers, silt throughout left upper extremity Back: No midline or flank tenderness Ext: No cyanosis, or edema Neur: Awake and alert Psych: Normal Mood and Affect Procedures/MDM 78-year-old female presents with left wrist discoloration after reported insect bite. I have low suspicion for disseminated infection warranting further marcelle gent care or work-up. Patient is neurovascular intact without any concerning findings on physical exam. Likely had a localized reaction following insect bite which is now improving. Will discharge with supportive care. Strict return precautions explained in detail to patient and family. DISPOSITION PLAN: We discussed follow up with the patient's primary care doctor within 24 to 48 hours. Patient counseled regarding my diagnostic impression and care plan. Prior to discharge all questions answered. Pt agrees with treatment plan and understands strict return precautions. Precautionary instructions provided including instructions to return to the ER if not improving or for any worsening or changing symptoms or concerns. Disclaimer: Inadvertent spelling and grammatical errors are likely due to EHR/dictation software use and do not reflect on the overall quality of patient care. Also, please note that the electronic time recorded on this note does not necessarily reflect the actual time of the patient encounter. Departure Diagnosis: Primary Impression: Insect bite Condition: Stable Patient Instructions: Allergic Reaction, Insect (General) Referrals: [facility] YOU HAVE RECEIVED A MEDICAL SCREENING EXAM AND THE RESULTS INDICATE THAT YOU DO NOT HAVE A CONDITION THAT REQUIRES URGENT TREATMENT IN THE EMERGENCY DEPARTMENT. FURTHER EVALUATION AND TREATMENT OF YOUR CONDITION CAN WAIT UNTIL YOU ARE SEEN IN YOUR DOCTORS OFFICE WITHIN THE NEXT 1-2 DAYS. IT IS YOUR RESPONSIBILITY TO MAKE AN APPOINTMENT FOR FOLOW-UP CARE. IF YOU HAVE A PRIMARY DOCTOR --you should call your primary doctor and schedule an appointment IF YOU DO NOT HAVE A PRIMARY DOCTOR YOU CAN CALL OUR PHYSICIAN REFERRAL HOTLINE AT IF YOU CAN NOT AFFORD TO SEE A PHYSICIAN YOU CAN CHOSE FROM THE FOLLOWING [facility] [address] [facility]. [facility] [address] [facility]. [facility] [address] [facility] [facility] [address] [facility] [facility] [address] [facility]. [facility]. [address] [place] Additional Instructions: Call your primary care doctor TOMORROW for an appointment during the next 2-3 days.See the doctor sooner or return here if your condition worsens before your appointment time. ERUM VERA PA-C April 02, 2019 21:50
== END 2019-04-02 22:59 | disposition left against medical advice (07) ==
LOC: FTE 20:30
DX: S60.862A Insect bite (nonvenomous) of left wrist, initial encounter (principal); I10 Essential (primary) hypertension; I25.10 Atherosclerotic heart disease of native coronary artery without angina pectoris; W57.XXXA Bitten or stung by nonvenomous insect and other nonvenomous arthropods, initial encounter; Y92.9 Unspecified place or not applicable; Z95.0 Presence of cardiac pacemaker
CPT/HCPCS: 99282